=== PATIENT | female | born 1935 | race Caucasian/White ===

== ENCOUNTER 2019-06-29 02:37 | Inpatient (IN) | payer MEDICARE ==
[2019-06-29] MEDS ORDERED: SODIUM CHLORIDE 0.9% 1,000 ML IV STA (02:42)
[2019-06-29] MEDS ORDERED: HYDROCORTISONE SUCCINATE 100 MG/2 ML VIAL IV STA (02:42)
[2019-06-29] MEDS ORDERED: VANCOMYCIN IV PER PHARMACY 1 EACH MISC MISCELLANE PRN (02:43)
--- NOTE | 2019-06-29 02:44 | ED ---
Weakness HPI - General Stated complaint: hypotension Time Seen by Provider: 06/29/19 02:42 Source: RN notes reviewed, old records reviewed Mode of arrival: EMS Limitations: altered mental status - History of Present Illness Initial comments: This is an 83-year-old female for evaluation of weakness poor strain secondary to clinical condition significantly hypotensive and hypothermic on arrival, patient is made herself a DO NOT RESUSCITATE, no code. Unable with history history obtained from EMS and prior charting patient accepted in transfer from [facility] MD Complaint: generalized weakness, lack of energy -: unknown Location: generalized Severity: severe Severity scale (1-10): 10 Quality: constant Consistency: constant Improves with: none Worsens with: none Context: recent illness, history of similar Associated Symptoms: nausea/vomiting, shortness of breath - Related Data Home Medications Medication Instructions Recorded Confirmed Apixaban [Eliquis] 5 mg PO BID 06/29/19 06/29/19 Aspirin EC [Ecotrin Low Dose] 81 mg PO DAILY 06/29/19 06/29/19 Cetirizine HCl 10 mg PO DAILY 06/29/19 06/29/19 Cholecalciferol (Vitamin D3) 2,000 unit PO DAILY 06/29/19 06/29/19 [Vitamin D3] Estradiol 0.25 mg PO Q48H 06/29/19 06/29/19 Fish Oil 900mg 900 mg PO DAILY 06/29/19 06/29/19 Fluticasone Propionate [Flonase 1 spray EA NOSTRIL DAILY 06/29/19 06/29/19 Allergy Relief] Furosemide [Lasix] 20 mg PO DAILY 06/29/19 06/29/19 Glucosamine 750mg 750 mg PO DAILY 06/29/19 06/29/19 Insulin Aspart Protam & Aspart 40 units SQ QAM 06/29/19 06/29/19 [NovoLOG MIX 70-30 Flexpen] Insulin Aspart Protam & Aspart 44 units SQ HS 06/29/19 06/29/19 [NovoLOG MIX 70-30 Flexpen] Levobunolol HCl [Betagan 0.5%] 1 drop BOTH EYES DAILY 06/29/19 06/29/19 Metoprolol Succinate [Toprol XL] 25 mg PO DAILY 06/29/19 06/29/19 Spironolactone 25 mg PO DAILY 06/29/19 06/29/19 hydrOXYzine HCL 25 mg PO Q8H PRN 06/29/19 06/29/19 Allergies Allergy/AdvReac Type Severity Reaction Status Date / Time amoxicillin Allergy Itching Verified 06/29/19 11:30 rosuvastatin [From Crestor] Allergy muscle pain Verified 06/29/19 11:30 Review of Systems ROS Statement: Those systems with pertinent positive or pertinent negative responses have been documented in the HPI. ROS Other: All systems not noted in ROS Statement are negative. General Exam Limitations: altered mental status General appearance: alert, lethargic, in distress Head exam: Present: atraumatic, normocephalic, normal inspection Eye exam: Present: normal appearance, PERRL, EOMI. Absent: scleral icterus, conjunctival injection, periorbital swelling ENT exam: Present: normal exam, mucous membranes moist Neck exam: Present: normal inspection. Absent: tenderness, meningismus, lymphadenopathy Respiratory exam: Present: decreased breath sounds, prolonged expiratory. Absent: respiratory distress, wheezes, rales, rhonchi, stridor Cardiovascular Exam: Present: regular rate, normal rhythm, normal heart sounds. Absent: systolic murmur, diastolic murmur, rubs, gallop, clicks GI/Abdominal exam: Present: soft, normal bowel sounds. Absent: distended, tenderness, guarding, rebound, rigid Extremities exam: Present: normal inspection, full ROM, normal capillary refill. Absent: tenderness, pedal edema, joint swelling, calf tenderness Back exam: Present: normal inspection Neurological exam: Present: altered Psychiatric exam: Present: normal affect, normal mood Skin exam: Present: dry, intact, pallor. Absent: rash Course Vital Signs 06/29/19 06/29/19 06/29/19 02:46 03:04 03:23 Temperature 92.5 F L 92.6 F L 92.7 F L Pulse Rate 70 70 70 Respiratory 15 16 10 L Rate Blood Pressure 117/67 115/81 93/39 O2 Sat by Pulse 97 95 92 L Oximetry 06/29/19 06/29/19 06/29/19 03:45 03:53 04:09 Temperature 92.8 F L Pulse Rate 70 70 70 Respiratory 10 L 10 L 12 Rate Blood Pressure 88/61 85/57 110/62 O2 Sat by Pulse 95 95 98 Oximetry 06/29/19 04:19 Temperature 93.6 F L Pulse Rate 70 Respiratory 12 Rate Blood Pressure 118/67 O2 Sat by Pulse 98 Oximetry - Reevaluation(s) Reevaluation #1: Medical records reviewed Patient is a no code patient Patient attempting to warm with active measures EKG Findings - EKG Comments: EKG Findings:: EKG shows paced rhythm of 70, QRS 136, QTc 462 Medical Decision Making - Medical Decision Making 83 female DF for evaluation patient coming in for hypothermia likely cause of sepsis. Patient to be admitted for continued rewarming, she is in no code patient - Lab Data Result diagrams: 07/01/19 04:15 07/01/19 04:15 Lab Results 06/29/19 06/29/19 06/29/19 Range/Units 02:50 02:50 02:50 WBC 5.2 (3.8-10.6) k/uL RBC 4.68 (3.80-5.40) m/uL Hgb 14.4 (11.4-16.0) gm/dL Hct 47.2 H (34.0-46.0) % MCV 100.8 H (80.0-100.0) fL MCH 30.7 (25.0-35.0) pg MCHC 30.5 L (31.0-37.0) g/dL RDW 16.8 H (11.5-15.5) % Plt Count 103 L (150-450) k/uL Neutrophils % 73 % Lymphocytes % 17 % Monocytes % 5 % Eosinophils % 2 % Basophils % 0 % Neutrophils # 3.8 (1.3-7.7) k/uL Lymphocytes # 0.9 L (1.0-4.8) k/uL Monocytes # 0.3 (0-1.0) k/uL Eosinophils # 0.1 (0-0.7) k/uL Basophils # 0.0 (0-0.2) k/uL Manual Slide Review Performed Large Platelets Present Hypochromasia Moderate Anisocytosis Slight Macrocytosis Slight Sodium 140 (137-145) mmol/L Potassium 5.5 H (3.5-5.1) mmol/L Chloride 111 H (98-107) mmol/L Carbon Dioxide 21 L (22-30) mmol/L Anion Gap 8 mmol/L BUN 81 H (7-17) mg/dL Creatinine 2.26 H (0.52-1.04) mg/dL Est GFR (CKD-EPI)AfAm 23 (>60 ml/min/1.73 sqM) Est GFR (CKD-EPI)NonAf 20 (>60 ml/min/1.73 sqM) Glucose 61 L (74-99) mg/dL Plasma Lactic Acid Huseyin (0.7-2.0) mmol/L Calcium 9.3 (8.4-10.2) mg/dL Phosphorus 5.5 H (2.5-4.5) mg/dL Magnesium 3.0 H (1.6-2.3) mg/dL Total Bilirubin 0.9 (0.2-1.3) mg/dL AST 58 H (14-36) U/L ALT 31 (4-34) U/L Alkaline Phosphatase 157 H (38-126) U/L Creatine Kinase 114 (30-135) U/L CK-MB (CK-2) (0.0-2.4) ng/mL Troponin I (0.000-0.034) ng/mL Total Protein 6.0 L (6.3-8.2) g/dL Albumin 3.0 L (3.5-5.0) g/dL TSH 4.050 (0.465-4.680) mIU/L Total T4 (4.5 - 10.9) ug/dL Free T4 1.66 (0.78-2.19) ng/dL Free T3 pg/mL 2.8 (2.8-5.3) pg/ml Total T3 (60.0-180.0) ng/dL Urine Color Yellow Urine Appearance Cloudy H (Clear) Urine pH 5.5 (5.0-8.0) Ur Specific [place] 1.022 (1.001-1.035) Urine Protein 2+ H (Negative) Urine Glucose (UA) Negative (Negative) Urine Ketones Negative (Negative) Urine Blood Large H (Negative) Urine Nitrite Negative (Negative) Urine Bilirubin Negative (Negative) Urine Urobilinogen <2.0 (<2.0) mg/dL Ur Leukocyte Esterase Small H (Negative) Urine RBC >182 H (0-5) /hpf Urine WBC 21 H (0-5) /hpf Ur Squamous Epith Cells <1 (0-4) /hpf Amorphous Sediment Moderate H (None) /hpf Urine Bacteria Occasional H (None) /hpf Hyaline Casts 445 H (0-2) /lpf Urine Mucus Rare H (None) /hpf 06/29/19 06/29/19 06/29/19 Range/Units 02:50 02:50 02:50 WBC (3.8-10.6) k/uL RBC (3.80-5.40) m/uL Hgb (11.4-16.0) gm/dL Hct (34.0-46.0) % MCV (80.0-100.0) fL MCH (25.0-35.0) pg MCHC (31.0-37.0) g/dL RDW (11.5-15.5) % Plt Count (150-450) k/uL Neutrophils % % Lymphocytes % % Monocytes % % Eosinophils % % Basophils % % Neutrophils # (1.3-7.7) k/uL Lymphocytes # (1.0-4.8) k/uL Monocytes # (0-1.0) k/uL Eosinophils # (0-0.7) k/uL Basophils # (0-0.2) k/uL Manual Slide Review Large Platelets Hypochromasia Anisocytosis Macrocytosis Sodium (137-145) mmol/L Potassium (3.5-5.1) mmol/L Chloride (98-107) mmol/L Carbon Dioxide (22-30) mmol/L Anion Gap mmol/L BUN (7-17) mg/dL Creatinine (0.52-1.04) mg/dL Est GFR (CKD-EPI)AfAm (>60 ml/min/1.73 sqM) Est GFR (CKD-EPI)NonAf (>60 ml/min/1.73 sqM) Glucose (74-99) mg/dL Plasma Lactic Acid [place] 1.5 (0.7-2.0) mmol/L Calcium (8.4-10.2) mg/dL Phosphorus (2.5-4.5) mg/dL Magnesium (1.6-2.3) mg/dL Total Bilirubin (0.2-1.3) mg/dL AST (14-36) U/L ALT (4-34) U/L Alkaline Phosphatase (38-126) U/L Creatine Kinase (30-135) U/L CK-MB (CK-2) 16.8 H (0.0-2.4) ng/mL Troponin I 0.031 (0.000-0.034) ng/mL Total Protein (6.3-8.2) g/dL Albumin (3.5-5.0) g/dL TSH (0.465-4.680) mIU/L Total T4 5.2 (4.5 - 10.9) ug/dL Free T4 (0.78-2.19) ng/dL Free T3 pg/mL (2.8-5.3) pg/ml Total T3 (60.0-180.0) ng/dL Urine Color Urine Appearance (Clear) Urine pH (5.0-8.0) Ur Specific [place] (1.001-1.035) Urine Protein (Negative) Urine Glucose (UA) (Negative) Urine Ketones (Negative) Urine Blood (Negative) Urine Nitrite (Negative) Urine Bilirubin (Negative) Urine Urobilinogen (<2.0) mg/dL Ur Leukocyte Esterase (Negative) Urine RBC (0-5) /hpf Urine WBC (0-5) /hpf Ur Squamous Epith Cells (0-4) /hpf Amorphous Sediment (None) /hpf Urine Bacteria (None) /hpf Hyaline Casts (0-2) /lpf Urine Mucus (None) /hpf 06/29/19 Range/Units 02:50 WBC (3.8-10.6) k/uL RBC (3.80-5.40) m/uL Hgb (11.4-16.0) gm/dL Hct (34.0-46.0) % MCV (80.0-100.0) fL MCH (25.0-35.0) pg MCHC (31.0-37.0) g/dL RDW (11.5-15.5) % Plt Count (150-450) k/uL Neutrophils % % Lymphocytes % % Monocytes % % Eosinophils % % Basophils % % Neutrophils # (1.3-7.7) k/uL Lymphocytes # (1.0-4.8) k/uL Monocytes # (0-1.0) k/uL Eosinophils # (0-0.7) k/uL Basophils # (0-0.2) k/uL Manual Slide Review Large Platelets Hypochromasia Anisocytosis Macrocytosis Sodium (137-145) mmol/L Potassium (3.5-5.1) mmol/L Chloride (98-107) mmol/L Carbon Dioxide (22-30) mmol/L Anion Gap mmol/L BUN (7-17) mg/dL Creatinine (0.52-1.04) mg/dL Est GFR (CKD-EPI)AfAm (>60 ml/min/1.73 sqM) Est GFR (CKD-EPI)NonAf (>60 ml/min/1.73 sqM) Glucose (74-99) mg/dL Plasma Lactic Acid [place]in (0.7-2.0) mmol/L Calcium (8.4-10.2) mg/dL Phosphorus (2.5-4.5) mg/dL Magnesium (1.6-2.3) mg/dL Total Bilirubin (0.2-1.3) mg/dL AST (14-36) U/L ALT (4-34) U/L Alkaline Phosphatase (38-126) U/L Creatine Kinase (30-135) U/L CK-MB (CK-2) (0.0-2.4) ng/mL Troponin I (0.000-0.034) ng/mL Total Protein (6.3-8.2) g/dL Albumin (3.5-5.0) g/dL TSH (0.465-4.680) mIU/L Total T4 (4.5 - 10.9) ug/dL Free T4 (0.78-2.19) ng/dL Free T3 pg/mL (2.8-5.3) pg/ml Total T3 61.0 (60.0-180.0) ng/dL Urine Color Urine Appearance (Clear) Urine pH (5.0-8.0) Ur Specific [place] (1.001-1.035) Urine Protein (Negative) Urine Glucose (UA) (Negative) Urine Ketones (Negative) Urine Blood (Negative) Urine Nitrite (Negative) Urine Bilirubin (Negative) Urine Urobilinogen (<2.0) mg/dL Ur Leukocyte Esterase (Negative) Urine RBC (0-5) /hpf Urine WBC (0-5) /hpf Ur Squamous Epith Cells (0-4) /hpf Amorphous Sediment (None) /hpf Urine Bacteria (None) /hpf Hyaline Casts (0-2) /lpf Urine Mucus (None) /hpf Critical Care Time Critical Care Time: Yes Total Critical Care Time: 31 Disposition Clinical Impression: Sepsis, Hypothermia, Weakness Disposition: ADMITTED IP TO THIS HOSP Condition: Critical Is patient prescribed a controlled substance at d/c from ED?: No
[2019-06-29 03:11] LABS: Anisocytosis Slight; Basophils % (A) 0 %; Eosinophils # (A) 0.1 k/uL (0-0.7); Eosinophils % (A) 2 %; HCT 47.2 % (34.0-46.0); HGB 14.4 gm/dL (11.4-16.0); Hypochromasia Moderate; Lymphocytes # (A) 0.9 k/uL (1.0-4.8); Lymphocytes % (A) 17 %; MCH 30.7 pg (25.0-35.0); MCHC 30.5 g/dL (31.0-37.0); MCV 100.8 fL (80.0-100.0); Macrocytosis Slight; Mean Platelet Volume 12.1; Monocytes # (A) 0.3 k/uL (0-1.0); Monocytes % (A) 5 %; Neutrophils # (A) 3.8 k/uL (1.3-7.7); Neutrophils % (A) 73 %; Platelet Count 103 k/uL (150-450); RBC 4.68 m/uL (3.80-5.40); RDW 16.8 % (11.5-15.5); WBC 5.2 k/uL (3.8-10.6)
[2019-06-29] MEDS ORDERED: NALOXONE 0.4 MG/ML 1 ML VIAL IV PRN (03:11)
[2019-06-29] MEDS ORDERED: IPRATROPIUM-ALBUTEROL 3 ML NEB INHALATION PRN (03:11)
[2019-06-29 03:16] LABS: Amorphous Sediment,Urine Moderate /hpf; Appearance,Urine Cloudy (Clear); Bacteria,Urine Occasional /hpf; Bilirubin,Urine Negative (Negative); Blood,Urine Large (Negative); Color,Urine Yellow; Glucose,Urine (UA) Negative (Negative); Hyaline Casts,Urine 445 /lpf (0-2); Ketones,Urine Negative (Negative); Leukocyte Esterase,Urine Small (Negative); Mucus,Urine Rare /hpf; Nitrite,Urine Negative (Negative); PH, Urine 5.5 (5.0-8.0); Protein,Urine 2+ (Negative); RBC,Urine >182 /hpf (0-5); Specific Gravity,Urine 1.022 (1.001-1.035); Squamous Epithelial Cell,Urine <1 /hpf (0-4); Urobilinogen,Urine <2.0 mg/dL (<2.0); WBC,Urine 21 /hpf (0-5)
[2019-06-29 03:17] LABS: Calcium 9.3 mg/dL (8.4-10.2); Phosphorus 5.5 mg/dL (2.5-4.5); Potassium 5.5 mmol/L (3.5-5.1); Total Bilirubin 0.9 mg/dL (0.2-1.3)
[2019-06-29 03:23] LABS: Large Platelets Present
[2019-06-29] MEDS ORDERED: VANCOMYCIN 1,500 MG in SODIUM CHLORIDE 0.9% 250 ML IVPB ONE (03:30)
[2019-06-29] MEDS ORDERED: NOREPINEPHRINE 32 MG in SODIUM CHLORIDE 0.9% 218 ML IV ONE (03:30)
[2019-06-29 03:33] LABS: T4, Free (Free Thyroxine) 1.66 ng/dL (0.78-2.19)
[2019-06-29 03:34] LABS: Creatine Kinase MB 16.8 ng/mL (0.0-2.4); Troponin I 0.031 ng/mL (0.000-0.034)
[2019-06-29] MEDS: DOBUTamine DRIP 500 MG in DEXTROSE/WATER 1 250ML.BAG IV SCH ×2 (03:45→20:00)
[2019-06-29] MEDS ORDERED: DEXTROSE 5%-0.45% NACL 1,000 ML IV ONE (04:08)
[2019-06-29 04:17] LABS: Glucose,Whole Blood 54 mg/dL (75-99)
[2019-06-29] MEDS ORDERED: cefTRIAXone IN SWFI 1,000 MG/10 ML SYRINGE IVP STA (04:23)
[2019-06-29 04:46] LABS: Glucose,Whole Blood 69 mg/dL (75-99)
[2019-06-29 04:46] LABS: Glucose,Whole Blood 67 mg/dL (75-99)
[2019-06-29 05:08] LABS: Glucose,Whole Blood 74 mg/dL (75-99)
[2019-06-29] MEDS ORDERED: SODIUM BICARB 8.4% 50 ML SYR (1 MEQ/ML) IV STA (08:39)
--- NOTE | 2019-06-29 08:42 | P.NPCON ---
History of Present Illness - Reason for Consult acute renal failure - History of Present Illness Reason for consultation: Acute kidney injury on chronic kidney disease History of present illness: Patient is a 83-year-old female seen in renal consultation for acute kidney injury on chronic kidney disease. 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 Patient presented to [facility] with generalized weakness. She was noted to be hypotensive with systolic blood pressure in the 60s. She received 2.5 L of normal saline bolus and was subsequently transferred to this facility. She is currently on 10 mics of Levophed and 5 mics of dobutamine. Urine output the last 3 hours has been about 25 mL total. She is also receiving half-normal saline at 80 mL an hour. Creatinine today is 2.26. Blood pressures now the systolic 80s. Patient is somewhat confused. She is not a reliable historian. She was also noted to be hypoglycemic and her blood sugars have improved a little. I don't see her home medications listed and patient is not able to give reliable information at this time. Vital signs are stable. General: The patient appeared well nourished and normally developed. HEENT: Head exam is unremarkable. Neck is without jugular venous distension. LUNGS: Lungs are clear to auscultation and percussion. Breath sounds decreased. HEART: Rate and Rhythm are regular. ABDOMEN: Obese. Nontender. EXTREMITITES: 1+ edema. Chronic changes noted. Past Medical History Past Medical History: Heart Failure, Diabetes Mellitus History of Any Multi-Drug Resistant Organisms: Unobtainable Past Surgical History: Pacemaker Past Psychological History: Unable to Obtain Smoking Status: Unknown if ever smoked Past Alcohol Use History: Unable to Obtain Past Drug Use History: Unable to Obtain Medications and Allergies Home Medications Medication Instructions Recorded Confirmed Type Unable To Assess [Unable to Assess] 06/29/19 06/29/19 History Allergies Allergy/AdvReac Type Severity Reaction Status Date / Time No Known Allergies Allergy Verified 06/29/19 02:58 Physical Exam Vitals: Vital Signs Temp Pulse Resp BP Pulse Ox 06/29/19 08:00 97.4 F L 78 12 84/35 96 06/29/19 07:00 70 14 99/47 96 06/29/19 06:45 97.4 F L 70 16 111/61 97 06/29/19 06:30 70 14 107/48 95 06/29/19 06:15 69 15 95/50 96 06/29/19 06:00 93.8 F L 70 14 94/46 96 06/29/19 05:45 70 16 102/46 96 06/29/19 05:30 70 14 99/47 97 06/29/19 05:15 70 15 93/48 95 06/29/19 05:00 94.8 F L 70 16 111/51 96 06/29/19 04:35 69 12 99/57 98 06/29/19 04:19 93.6 F L 70 12 118/67 98 06/29/19 04:09 70 12 110/62 98 06/29/19 03:53 70 10 L 85/57 95 06/29/19 03:45 92.8 F L 70 10 L 88/61 95 06/29/19 03:23 92.7 F L 70 10 L 93/39 92 L 06/29/19 03:04 92.6 F L 70 16 115/81 95 06/29/19 02:46 92.5 F L 70 15 117/67 97 Intake and Output 06/28/19 06/29/19 06/29/19 22:59 06:59 14:59 Intake Total 263.848 159.224 Output Total 47 Balance 216.848 159.224 Intake: IV 249 83 Dextrose 5%-0.45% NaCl 1, 249 83 000 ml @ 83 mls/hr IV . Q12H3M ONE Rx#:[id number] Intake, IV Titration 14.848 76.224 Amount DOBUTamine DRIP 500 mg In 70.421 Dextrose/Water 1 250ml. bag @ 5 MCG/KG/MIN 15.649 mls/hr IV .[id number] Rx#:[id number] Norepinephrine 32 mg In 14.848 5.803 Sodium Chloride 0.9% 218 ml @ 0.05 MCG/KG/MIN 2. 445 mls/hr IV .Q24H ONE Rx#:[id number] Output: Urine 47 Other: Voiding Method Indwelling Catheter Weight 104.326 kg Results - Lab Results Most recent lab results Calcium 9.3 mg/dL (8.4-10.2) 06/29/19 02:50 Phosphorus 5.5 mg/dL (2.5-4.5) H 06/29/19 02:50 Magnesium 3.0 mg/dL (1.6-2.3) H 06/29/19 02:50 06/29/19 02:50 06/29/19 02:50 Assessment and Plan Plan: Assessment: 1. Acute kidney injury secondary to ATN secondary to hypotension. Creatinine 2.26 today. Oliguric. 2. Chronic kidney disease stage III secondary to nephrosclerosis with baseline creatinine near 1.6. 3. Mild hyperkalemia secondary to acute kidney injury and metabolic acidosis. 4. Metabolic acidosis secondary to acute kidney injury. 5. Diabetes mellitus. 6. Septic shock. Possibly UTI. COVID-19 test was negative at [facility]. Plan: Maintain half-normal saline. 2 A of sodium bicarb IV push now. Maintain IV steroids. Wean vasopressors. Repeat BMP this evening. If no improvement in his urine output in the next 4-6 hours, I will challenge her with Lasix 80 mg IV once. Continue to assess daily for need for renal replacement therapy. Follow-up cultures. Thank you for the consultation. I will continue to follow the patient with you during her hospital stay.
[2019-06-29 08:53] LABS: Glucose,Whole Blood 93 mg/dL (75-99)
--- NOTE | 2019-06-29 08:58 | XR ---
EXAMINATION TYPE: XR chest 1V portable DATE OF EXAM: 06/29/2019 COMPARISON: NONE HISTORY: Shortness of breath TECHNIQUE: Single frontal view of the chest is obtained. FINDINGS: Cardiac device seen and is a coarsened interstitium with biapical pleural thickening. No a reas of consolidation. Tiny effusions not excluded. Heart enlarged. Atherosclerotic change aorta. IMPRESSION: 1. Mild increased interstitial pattern correlate for interstitial mild venous congestion or pneumonit is.
[2019-06-29] MEDS ORDERED: ENOXAPARIN 40 MG/0.4 ML SYRINGE SQ SCH (09:00)
--- NOTE | 2019-06-29 11:05 | CONS ---
CONSULTATION PULMONARY/CRITICAL CARE CONSULTATION: DATE OF CONSULTATION: June 29, 2019 REASON FOR CONSULTATION: Mental status changes, low blood pressure, and hypothermia. The patient presents to the emergency room. She apparently was seen there by Dr. Garcia. Her symptoms include generalized weakness, lack of energy, and she had a change in her mental status. She was also found to be hypotensive and hypothermic. Her initial temperature was right around 90 degrees. She had a thorough workup in the emergency room and Dr. Garcia thought that maybe this related to underlying sepsis. Anyway, the patient was given fluids I believe 3 L. The patient also received some Levophed. In addition, the patient had a central line placed. Currently, she is resting comfortably in bed. She is in the ICU. She is in room 263. She is lying flat. She is not demonstrating any respiratory distress. She is getting O2 at 3 L. Saturations are 97%. She is on dobutamine at 5 mcg/kg per minute, and norepinephrine at 1 mcg/minute. She has a right internal jugular triple-lumen catheter. She is on vancomycin and Rocephin. Her IV is D5 0.45 at 83 mL an hour. She apparently was transferred from [facility]. She went there initially. She apparently was thought to have either urosepsis and/or cellulitis of the lower extremities. MEDICATIONS: Her home medications are unknown. Her current medications are reviewed. ALLERGIES: Allergies are denied. MEDICAL HISTORY: Her medical history is unknown because we do not know what medication she was on. SURGICAL AND SOCIAL HISTORY: Surgical and social history is also unknown. She is not able to give any additional history. FAMILY HISTORY: Unknown. OCCUPATIONAL HISTORY: Unknown. She typically gets her care down at [facility] with Dr. Jeffrey. Hence, we have no records on her here at this hospital. No records apparently have yet been sent from the other hospital. Her current medications include ceftriaxone; Dobutamine, which we are attempting to wean off; Lovenox, hydrocortisone, DuoNeb, Narcan, norepinephrine, and vancomycin. REVIEW OF SYSTEMS: Cannot be obtained. PHYSICAL EXAMINATION: VITAL SIGNS: Current vital signs include temperature 97.4, heart rate 70, respiratory rate 12, blood pressure 104/45, mean 64, and 3 L saturation 96% to 97%. GENERAL: Very lethargic and sleepy. She does verbalize but does not really give much of a history. HEENT: Examination is grossly unremarkable. NECK: Supple. Full range of motion. No adenopathy or thyromegaly. Neck veins are flat. CARDIOVASCULAR: Examination reveals regular rhythm and rate. Heart rate 70. S1, S2 normal. LUNGS: Reveal mostly clear breath sounds. No wheezes or rhonchi. ABDOMEN: Soft. Bowel sounds are not noted. EXTREMITIES: Are intact. Minimal to no edema. SKIN: Without rash. NEUROLOGIC: Examination is brief but nonfocal. She does move all 4 extremities. She does respond, but she is very sleepy and lethargic. A chest x-ray is done here. The chest x-ray is essentially normal. There might be some very mild interstitial prominence. LABS: Labs are reviewed. White count 5.2, hemoglobin 14.4, hematocrit 47.2, platelet count 103,000. Sodium 140, potassium 5.5, chloride 111, CO2 of 21. Anion gap is 8. BUN and creatinine were 81 and 2.26. The phosphorus is 5.5, magnesium 3, total protein 6, albumin 3. TSH 4.050. I do not see a cortisol level. Urine looks like it might be infected. The urine is yellow and cloudy. There is 2+ protein. Blood is large positive. There is leukocyte esterase is small positive. There is greater than 182 RBCs, 21 WBCs and occasional urine bacteria. CURRENT MEDICATIONS: Current medications have already been mentioned. Microbiology is currently pending. ASSESSMENT: 1. Mental status changes, along with hypothermia and hypotension, may relate to underlying sepsis. Likely sources are either the urinary tract and/or the lower extremity cellulitis. 2. Hypothermia, which may relate to underlying sepsis. 3. Hypotension, also, which may relate to underlying sepsis. 4. Rule out acute kidney injury secondary to acute tubular necrosis secondary to sepsis. PLAN: I will go ahead and get a random cortisol on the patient. The TSH is normal. I have asked the nurses to wean the dobutamine off. Initially, they will go to 2.5 mcg/kg per minute and then off. In addition, because dobutamine is a vasodilator, we may be able to wean off the norepinephrine. She has a central line already. She is on good antibiotics. Additional recommendations and suggestions are forthcoming. She did receive 3 L of fluid in the emergency room. She has been warmed. MMODL / IJN: [id number] /
[2019-06-29] MEDS: HYDROCORTISONE SUCCINATE 100 MG/2 ML VIAL IV SCH ×2 (12:09→20:55)
[2019-06-29] MEDS ORDERED: FUROSEMIDE 10 MG/ML 4 ML VIAL IV STA (15:03)
--- NOTE | 2019-06-29 17:19 | P.HPIM ---
History of Present Illness H&P Date: 06/29/19 Chief Complaint: Low blood pressure History of presenting complaint: This is a 83-year-old female patient of Dr. Ralph Jeffrey. Patient has a wound care nurse that comes on at home. For that the patient was not looking well. [facility]ided [facility]. Blood pressure was the systolic 60s. Patient was hypothermic and also decreasing urine output. Particular distress Hospital and initially getting a nice U patient is given about 3 L of fluid. Oriented is also given bicarbonate. Patient's been on levo fed drip and dobutamine drip. Patient also was hypoglycemic. Patient has a bear hugger. Lethargic not really able to give much of her history but arousable. Seen by tar heel. Dr. Lopez. Admitting review of system could not be done as patient lethargic Past medical history: Not able to obtain appears patient is a diabetic, possibly CHF and also on anticoagulation. Social history: Patient does live alone. Does have a wound care nurse that comes out. Family history: Unable to obtain patient lethargic Physical examination: VITAL SIGNS: 92.5, 70, 15, 93/39, 92% on 3 L-upon presentation GENERAL: BMI 42.1, laying in bed, lethargic with a bear hugger. EYES: Pupils equal. Conjunctiva normal. HEENT: External appearance of nose and ears normal, oral cavity dry. NECK: JVD unable to assess; masses not palpable. HEART: First and second heart sounds are normal; no edema. LUNGS: Respiratory rate normal; decreased breath sounds. ABDOMEN: Soft, nontender, liver spleen not palpable, no masses palpable. PSYCH: Lethargic but arousablel. NEUROLOGICAL: Cranial nerves grossly intact; no facial asymmetry, power and sensation grossly intact DERMATOLOGICAL: Evidence of possible chronic cellulitis and lower extremity. LYMPHATICS: No lymph nodes palpable in the axilla and neck INVESTIGATIONS, reviewed in the clinical context: White count 5.2 hemoglobin 14.4 platelets 103 potassium 5.5 bun 81 creatinine 2.26 Glucose 61 TSH 4.0 UA positive for WBC leukoesterase EKG tracing personally reviewed by me-ventricle paced rhythm Chest x-ray film personally reviewed by me-portable, borderline cardiomegaly, lung victor clear Assessment: -Hypotensive shock, possibly fluid depletion, could be also septic shock in the setting of hypokalemia -Severe hypo-thermia possibly from UTI and electrolyte abnormalities -Acute metabolic encephalopathy from above -Diabetes mellitus type 2 chronically on insulin, uncontrolled with hypoglycemia -Chronically on eliquis -Possibly acute UTI from cystitis with sepsis shock Plan: Patient in the ICU. [employer] Dr. Lopez. Patient is on IV ceftriaxone. Also drips include IV dobutamine and IV norepinephrine. Patient did receive vancomycin. In the ER. In view of the renal failure will hold of the same. Level should remain-some time. Accu-Cheks were closely being followed. Patient is on a D5W 0.456 drip. Follow electrolytes closely. Past Medical History Past Medical History: Heart Failure, Diabetes Mellitus History of Any Multi-Drug Resistant Organisms: Unobtainable Past Surgical History: Pacemaker Past Psychological History: Unable to Obtain Smoking Status: Unknown if ever smoked Past Alcohol Use History: Unable to Obtain Past Drug Use History: Unable to Obtain Medications and Allergies Home Medications Medication Instructions Recorded Confirmed Type Apixaban [Eliquis] 5 mg PO BID 06/29/19 06/29/19 History Aspirin EC [Ecotrin Low Dose] 81 mg PO DAILY 06/29/19 06/29/19 History Cetirizine HCl 10 mg PO DAILY 06/29/19 06/29/19 History Cholecalciferol (Vitamin D3) 2,000 unit PO DAILY 06/29/19 06/29/19 History [Vitamin D3] Estradiol 0.25 mg PO Q48H 06/29/19 06/29/19 History Fish Oil 900mg 900 mg PO DAILY 06/29/19 06/29/19 History Fluticasone Propionate [Flonase 1 spray EA NOSTRIL DAILY 06/29/19 06/29/19 History Allergy Relief] Furosemide [Lasix] 20 mg PO DAILY 06/29/19 06/29/19 History Glucosamine 750mg 750 mg PO DAILY 06/29/19 06/29/19 History Insulin Aspart Protam & Aspart 40 units SQ QAM 06/29/19 06/29/19 History [NovoLOG MIX 70-30 Flexpen] Insulin Aspart Protam & Aspart 44 units SQ HS 06/29/19 06/29/19 History [NovoLOG MIX 70-30 Flexpen] Levobunolol HCl [Betagan 0.5%] 1 drop BOTH EYES DAILY 06/29/19 06/29/19 History Metoprolol Succinate [Toprol XL] 25 mg PO DAILY 06/29/19 06/29/19 History Spironolactone 25 mg PO DAILY 06/29/19 06/29/19 History hydrOXYzine HCL 25 mg PO Q8H PRN 06/29/19 06/29/19 History Allergies Allergy/AdvReac Type Severity Reaction Status Date / Time amoxicillin Allergy Itching Verified 06/29/19 11:30 rosuvastatin [From Crestor] Allergy muscle pain Verified 06/29/19 11:30 Physical Exam Vitals: Vital Signs Temp Pulse Resp BP Pulse Ox 06/29/19 09:00 70 12 103/91 96 06/29/19 08:00 97.4 F L 78 12 84/35 96 06/29/19 07:00 70 14 99/47 96 06/29/19 06:45 97.4 F L 70 16 111/61 97 06/29/19 06:30 70 14 107/48 95 06/29/19 06:15 69 15 95/50 96 06/29/19 06:00 93.8 F L 70 14 94/46 96 06/29/19 05:45 70 16 102/46 96 06/29/19 05:30 70 14 99/47 97 06/29/19 05:15 70 15 93/48 95 06/29/19 05:00 94.8 F L 70 16 111/51 96 06/29/19 04:35 69 12 99/57 98 06/29/19 04:19 93.6 F L 70 12 118/67 98 06/29/19 04:09 70 12 110/62 98 06/29/19 03:53 70 10 L 85/57 95 06/29/19 03:45 92.8 F L 70 10 L 88/61 95 06/29/19 03:23 92.7 F L 70 10 L 93/39 92 L 06/29/19 03:04 92.6 F L 70 16 115/81 95 06/29/19 02:46 92.5 F L 70 15 117/67 97 Intake and Output 06/28/19 06/29/19 06/29/19 22:59 06:59 14:59 Intake Total 263.848 242.224 Output Total 47 5 Balance 216.848 237.224 Intake: IV 249 166 Dextrose 5%-0.45% NaCl 1, 249 166 000 ml @ 83 mls/hr IV . Q12H3M [facility] Rx#:[id number] Intake, IV Titration 14.848 76.224 Amount DOBUTamine DRIP 500 mg In 70.421 Dextrose/Water 1 250ml. bag @ 5 MCG/KG/MIN 15.649 mls/hr IV .[id number] [facility] Rx#:[id number] Norepinephrine 32 mg In 14.848 5.803 Sodium Chloride 0.9% 218 ml @ 0.05 MCG/KG/MIN 2. 445 mls/hr IV .Q24H [facility] Rx#:[id number] Output: Urine 47 5 Other: Voiding Method Indwelling Catheter Weight 104.326 kg Results CBC & Chem 7: 06/29/19 02:50 06/29/19 02:50 Labs: Abnormal Lab Results - Last 24 Hours (Table) 06/29/19 06/29/19 06/29/19 Range/Units 02:50 02:50 02:50 Hct 47.2 H (34.0-46.0) % MCV 100.8 H (80.0-100.0) fL MCHC 30.5 L (31.0-37.0) g/dL RDW 16.8 H (11.5-15.5) % Plt Count 103 L (150-450) k/uL Lymphocytes # 0.9 L (1.0-4.8) k/uL Potassium 5.5 H (3.5-5.1) mmol/L Chloride 111 H (98-107) mmol/L Carbon Dioxide 21 L (22-30) mmol/L BUN 81 H (7-17) mg/dL Creatinine 2.26 H (0.52-1.04) mg/dL Glucose 61 L (74-99) mg/dL POC Glucose (mg/dL) (75-99) mg/dL Phosphorus 5.5 H (2.5-4.5) mg/dL Magnesium 3.0 H (1.6-2.3) mg/dL AST 58 H (14-36) U/L Alkaline Phosphatase 157 H (38-126) U/L CK-MB (CK-2) (0.0-2.4) ng/mL Total Protein 6.0 L (6.3-8.2) g/dL Albumin 3.0 L (3.5-5.0) g/dL Urine Appearance Cloudy H (Clear) Urine Protein 2+ H (Negative) Urine Blood Large H (Negative) Ur Leukocyte Esterase Small H (Negative) Urine RBC >182 H (0-5) /hpf Urine WBC 21 H (0-5) /hpf Amorphous Sediment Moderate H (None) /hpf Urine Bacteria Occasional H (None) /hpf Hyaline Casts 445 H (0-2) /lpf Urine Mucus Rare H (None) /hpf 06/29/19 06/29/19 06/29/19 Range/Units 02:50 04:06 04:35 Hct (34.0-46.0) % MCV (80.0-100.0) fL MCHC (31.0-37.0) g/dL RDW (11.5-15.5) % Plt Count (150-450) k/uL Lymphocytes # (1.0-4.8) k/uL Potassium (3.5-5.1) mmol/L Chloride (98-107) mmol/L Carbon Dioxide (22-30) mmol/L BUN (7-17) mg/dL Creatinine (0.52-1.04) mg/dL Glucose (74-99) mg/dL POC Glucose (mg/dL) 54 L 67 L (75-99) mg/dL Phosphorus (2.5-4.5) mg/dL Magnesium (1.6-2.3) mg/dL AST (14-36) U/L Alkaline Phosphatase (38-126) U/L CK-MB (CK-2) 16.8 H (0.0-2.4) ng/mL Total Protein (6.3-8.2) g/dL Albumin (3.5-5.0) g/dL Urine Appearance (Clear) Urine Protein (Negative) Urine Blood (Negative) Ur Leukocyte Esterase (Negative) Urine RBC (0-5) /hpf Urine WBC (0-5) /hpf Amorphous Sediment (None) /hpf Urine Bacteria (None) /hpf Hyaline Casts (0-2) /lpf Urine Mucus (None) /hpf 06/29/19 06/29/19 Range/Units 04:44 05:06 Hct (34.0-46.0) % MCV (80.0-100.0) fL MCHC (31.0-37.0) g/dL RDW (11.5-15.5) % Plt Count (150-450) k/uL Lymphocytes # (1.0-4.8) k/uL Potassium (3.5-5.1) mmol/L Chloride (98-107) mmol/L Carbon Dioxide (22-30) mmol/L BUN (7-17) mg/dL Creatinine (0.52-1.04) mg/dL Glucose (74-99) mg/dL POC Glucose (mg/dL) 69 L 74 L (75-99) mg/dL Phosphorus (2.5-4.5) mg/dL Magnesium (1.6-2.3) mg/dL AST (14-36) U/L Alkaline Phosphatase (38-126) U/L CK-MB (CK-2) (0.0-2.4) ng/mL Total Protein (6.3-8.2) g/dL Albumin (3.5-5.0) g/dL Urine Appearance (Clear) Urine Protein (Negative) Urine Blood (Negative) Ur Leukocyte Esterase (Negative) Urine RBC (0-5) /hpf Urine WBC (0-5) /hpf Amorphous Sediment (None) /hpf Urine Bacteria (None) /hpf Hyaline Casts (0-2) /lpf Urine Mucus (None) /hpf Microbiology - Last 24 Hours (Table) 06/29/19 02:50 Urine Culture - Preliminary Urine,Clean Catch
[2019-06-29 17:34] LABS: Calcium 8.6 mg/dL (8.4-10.2); Potassium 5.5 mmol/L (3.5-5.1)
[2019-06-29 17:46] LABS: Glucose,Whole Blood 143 mg/dL (75-99)
[2019-06-29] MEDS: TIMOLOL 0.5% OPHTH DROPS 5 ML BTL BOTH EYES SCH (18:46)
[2019-06-29 18:51] LABS: ABG Base Excess -5.8 mmol/L; ABG HCO3 20 mmol/L (21-25); ABG PCO2 38 mmHg (35-45); ABG PH 7.33 (7.35-7.45); ABG PO2 121 mmHg (83-108); ABG TCO2 21 mmol/L (19-24); Allen Test Performed? Yes
[2019-06-29 18:55] LABS: ABG Oxygen Saturation 98.7 % (94-97)
[2019-06-29 20:53] LABS: Glucose,Whole Blood 156 mg/dL (75-99)
[2019-06-29] MEDS: INSULIN ASPART (NovoLOG) 100 UNIT/ML VIAL SQ SCH (20:55)
[2019-06-30 01:39] LABS: Glucose,Whole Blood 189 mg/dL (75-99)
[2019-06-30] MEDS: INSULIN ASPART (NovoLOG) 100 UNIT/ML VIAL SQ SCH ×5 (01:41→20:31)
[2019-06-30] MEDS: HYDROCORTISONE SUCCINATE 100 MG/2 ML VIAL IV SCH ×3 (04:43→20:31)
[2019-06-30] MEDS: NOREPINEPHRINE 32 MG in SODIUM CHLORIDE 0.9% 218 ML IV SCH (04:44)
[2019-06-30 05:01] LABS: Anisocytosis Slight; HCT 47.7 % (34.0-46.0); HGB 14.5 gm/dL (11.4-16.0); Hypochromasia Marked; MCH 30.7 pg (25.0-35.0); MCHC 30.5 g/dL (31.0-37.0); MCV 100.6 fL (80.0-100.0); Macrocytosis Slight; Mean Platelet Volume 11.8; Platelet Count 120 k/uL (150-450); RBC 4.74 m/uL (3.80-5.40); RDW 16.5 % (11.5-15.5); WBC 6.5 k/uL (3.8-10.6)
[2019-06-30 05:02] LABS: Albumin 3.1 g/dL (3.5-5.0); Calcium 9.3 mg/dL (8.4-10.2); Magnesium 3.2 mg/dL (1.6-2.3); Phosphorus 6.7 mg/dL (2.5-4.5); Potassium 5.7 mmol/L (3.5-5.1); Total Bilirubin 0.7 mg/dL (0.2-1.3); Total Protein 6.2 g/dL (6.3-8.2)
[2019-06-30 05:48] LABS: Large Platelets Present; Lymphocytes # (M) 0.52 k/uL (1.0-4.8); Neutrophils # (M) 5.79 k/uL (1.3-7.7); Neutrophils % (M) 89 %; Nucleated Red Blood Cells 0 /100 WBC (0-0); Total Cells Counted 100
[2019-06-30 05:50] LABS: Poikilocytosis (M) Present
[2019-06-30 07:14] LABS: Glucose,Whole Blood 170 mg/dL (75-99)
--- NOTE | 2019-06-30 07:51 | XR ---
EXAMINATION TYPE: XR chest 1V DATE OF EXAM: 06/30/2019 COMPARISON: 06/29/2019 INDICATION: Short of breath TECHNIQUE: Single frontal view of the chest is obtained. FINDINGS: The heart size is mildly prominent. The pulmonary vasculature is normal. Pacemaker overlies left chest. Right central venous catheter is present with tip in the superior vena cava region. Bibasilar infiltrates or small pleural effusions have developed. Findings are worsening over the interval IMPRESSION: 1. Bibasilar opacifications. Correlate for atelectasis and small pleural effusions. Findings are wors ening.
[2019-06-30] MEDS ORDERED: VANCOMYCIN 1,750 MG in SODIUM CHLORIDE 0.9% 500 ML 500 ML IVPB ONE (08:00)
[2019-06-30] MEDS: TIMOLOL 0.5% OPHTH DROPS 5 ML BTL BOTH EYES SCH (09:00)
[2019-06-30] MEDS: ENOXAPARIN 30 MG/0.3 ML SYRINGE SQ SCH (09:00)
[2019-06-30] MEDS: ESTRADIOL 0.5 MG TAB PO SCH (11:15)
[2019-06-30] MEDS ORDERED: INSULIN REGULAR 100 UNIT/ML VIAL IV ONE (11:18)
[2019-06-30] MEDS ORDERED: FUROSEMIDE 10 MG/ML 10 ML VIAL IV STA (11:18)
[2019-06-30] MEDS ORDERED: DEXTROSE 50% SYRINGE 50 ML IVP STA (11:18)
[2019-06-30] MEDS ORDERED: SODIUM BICARB 8.4% 50 ML SYR (1 MEQ/ML) IV STA (11:18)
--- NOTE | 2019-06-30 11:22 | P.PN ---
Subjective Patient is seen in follow-up for acute kidney injury. Renal function worsening. Urine output 15-20 mL an hour. Currently on 18 mics of Levophed. Remains acidotic. Potassium on the higher side. Not a reliable historian. Vital signs are stable. General: The patient appeared well nourished and normally developed. HEENT: Head exam is unremarkable. Neck is without jugular venous distension. LUNGS: Lungs are clear to auscultation and percussion. Breath sounds decreased. HEART: Rate and Rhythm are regular. ABDOMEN: Non-tender. No distension. EXTREMITITES: 1+ edema. Objective - Vital Signs Vital signs: Vital Signs Temp 98.7 F 06/30/19 08:00 Pulse 70 06/30/19 11:00 Resp 12 06/30/19 11:00 BP 130/57 06/30/19 11:00 Pulse Ox 97 06/30/19 11:00 Intake & Output 06/29/19 06/30/19 06/30/19 18:59 06:59 18:59 Intake Total 1085.916 665.564 100 Output Total 100 225 92 Balance 985.916 440.564 8 Weight 104.326 kg 111.4 kg Intake: IV 996 598 100 Dextrose 5%-0.45% NaCl 1, 996 598 100 000 ml @ 83 mls/hr IV . Q12H3M [facility] Rx#:[id number] Intake, IV Titration 89.916 67.564 Amount DOBUTamine DRIP 500 mg In 84.113 Dextrose/Water 1 250ml. bag @ 5 MCG/KG/MIN 15.649 mls/hr IV .[id number] [facility] Rx#:[id number] Norepinephrine 32 mg In 5.803 62.429 Sodium Chloride 0.9% 218 ml @ 0.05 MCG/KG/MIN 2. 445 mls/hr IV .Q24H [facility] Rx#:[id number] Norepinephrine 32 mg In 5.135 Sodium Chloride 0.9% 218 ml @ 0.05 MCG/KG/MIN 2. 445 mls/hr IV .Q24H [facility] Rx#:[id number] Output: Urine 100 225 92 Other: Voiding Method Indwelling Catheter Indwelling Catheter Indwelling Catheter - Labs CBC & Chem 7: 06/30/19 04:26 06/30/19 04:26 Labs: Abnormal Lab Results - Last 24 Hours (Table) 06/29/19 06/29/19 06/29/19 Range/Units 17:05 17:43 18:50 Hct (34.0-46.0) % MCV (80.0-100.0) fL MCHC (31.0-37.0) g/dL RDW (11.5-15.5) % Plt Count (150-450) k/uL Lymphocytes # (Manual) (1.0-4.8) k/uL ABG pH 7.33 L (7.35-7.45) ABG pO2 121 H (83-108) mmHg ABG HCO3 20 L (21-25) mmol/L ABG O2 Saturation 98.7 H (94-97) % Sodium 136 L (137-145) mmol/L Potassium 5.5 H (3.5-5.1) mmol/L Chloride (98-107) mmol/L Carbon Dioxide 20 L (22-30) mmol/L BUN 80 H (7-17) mg/dL Creatinine 2.36 H (0.52-1.04) mg/dL Glucose 344 H (74-99) mg/dL POC Glucose (mg/dL) 143 H (75-99) mg/dL Phosphorus (2.5-4.5) mg/dL Magnesium (1.6-2.3) mg/dL AST (14-36) U/L Alkaline Phosphatase (38-126) U/L Total Protein (6.3-8.2) g/dL Albumin (3.5-5.0) g/dL 06/29/19 06/30/19 06/30/19 Range/Units 20:52 01:37 04:26 Hct 47.7 H (34.0-46.0) % MCV 100.6 H (80.0-100.0) fL MCHC 30.5 L (31.0-37.0) g/dL RDW 16.5 H (11.5-15.5) % Plt Count 120 L (150-450) k/uL Lymphocytes # (Manual) 0.52 L (1.0-4.8) k/uL ABG pH (7.35-7.45) ABG pO2 (83-108) mmHg ABG HCO3 (21-25) mmol/L ABG O2 Saturation (94-97) % Sodium (137-145) mmol/L Potassium (3.5-5.1) mmol/L Chloride (98-107) mmol/L Carbon Dioxide (22-30) mmol/L BUN (7-17) mg/dL Creatinine (0.52-1.04) mg/dL Glucose (74-99) mg/dL POC Glucose (mg/dL) 156 H 189 H (75-99) mg/dL Phosphorus (2.5-4.5) mg/dL Magnesium (1.6-2.3) mg/dL AST (14-36) U/L Alkaline Phosphatase (38-126) U/L Total Protein (6.3-8.2) g/dL Albumin (3.5-5.0) g/dL 06/30/19 06/30/19 Range/Units 04:26 07:13 Hct (34.0-46.0) % MCV (80.0-100.0) fL MCHC (31.0-37.0) g/dL RDW (11.5-15.5) % Plt Count (150-450) k/uL Lymphocytes # (Manual) (1.0-4.8) k/uL ABG pH (7.35-7.45) ABG pO2 (83-108) mmHg ABG HCO3 (21-25) mmol/L ABG O2 Saturation (94-97) % Sodium (137-145) mmol/L Potassium 5.7 H (3.5-5.1) mmol/L Chloride 109 H (98-107) mmol/L Carbon Dioxide 17 L (22-30) mmol/L BUN 89 H (7-17) mg/dL Creatinine 2.66 H (0.52-1.04) mg/dL Glucose 215 H (74-99) mg/dL POC Glucose (mg/dL) 170 H (75-99) mg/dL Phosphorus 6.7 H (2.5-4.5) mg/dL Magnesium 3.2 H (1.6-2.3) mg/dL AST 50 H (14-36) U/L Alkaline Phosphatase 142 H (38-126) U/L Total Protein 6.2 L (6.3-8.2) g/dL Albumin 3.1 L (3.5-5.0) g/dL Microbiology - Last 24 Hours (Table) 06/29/19 04:00 Blood Culture - Preliminary Blood No Growth after 24 hours 06/29/19 02:50 Urine Culture - Preliminary Urine,Clean Catch Assessment and Plan Plan: Assessment: 1. Acute kidney injury secondary to ATN secondary to hypotension/sepsis. Creatinine 2.66 today. Oliguric. 2. Chronic kidney disease stage III secondary to nephrosclerosis with baseline creatinine near 1.6. 3. Mild hyperkalemia secondary to acute kidney injury and metabolic acidosis. 4. Metabolic acidosis secondary to acute kidney injury. 5. Diabetes mellitus. 6. Septic shock. Possibly UTI. COVID-19 test was negative at [facility]. 7. Fluid overload. Plan: Hep-Lock IV fluids. 2 A of sodium bicarb IV push now. 10 units of IV regular insulin with an amp of D50. Lasix 80 mg IV once today. Wean vasopressors. Repeat BMP this evening. Continue to assess daily for need for renal replacement therapy. Follow-up cultures.
[2019-06-30 11:24] LABS: Glucose,Whole Blood 179 mg/dL (75-99)
--- NOTE | 2019-06-30 14:02 | PN ---
PROGRESS NOTE PULMONARY/CRITICAL CARE PROGRESS NOTE: DATE OF SERVICE: 06/30/2019 This is a patient who is 83 years of age and we saw yesterday in consultation. She came in with mental status changes, hypotension and hypothermia. We thought that she might have some underlying sepsis. In addition, the patient was thought to have acute kidney injury secondary to ATN. We really did not know much about the patient when we first saw her. We have gotten some additional information. It appears that she likely has diabetes, and she is on blood thinner. In addition, she takes vitamin D3 and antihistamines. She is also on metoprolol and Aldactone. I suspect she has some underlying CHF. Anyway, overnight, the patient was made a NO CODE by her family. Currently, she has a paced rhythm with a rate of 69. She is on O2 at 3 L by nasal cannula and norepinephrine at 18 mcg/minute. She is getting D5 of 0.45 at 20 mL an hour. Chest x-ray shows some bibasilar infiltrates. She is getting both vancomycin and Rocephin. She apparently had a blood culture that was positive for gram-positive cocci. Her mentation is a bit improved. She also got some sodium bicarbonate IV push yesterday from the conveyor attendant. She was on dobutamine, but that has been weaned off. She does have a central line. Currently, she is still very lethargic and somnolent. In addition, the nurse said that she also became hypothermic again early this morning. She is not being warmed again. She was initially seen at [facility] and transferred up to [facility]. Current vital signs are reviewed. Temperature is 97.5, heart rate 70, respiratory rate 12, blood pressure 126/56 mean 79, and 3 L saturation 96%. Appears in no acute distress. HEENT: Examination is grossly unremarkable. Nasal O2 noted. NECK: Supple, full range of motion. There is a central line noted. No adenopathy or thyromegaly. Neck veins are flat. CARDIOVASCULAR: Examination reveals regular rhythm and rate. Heart rate about 70 beats per minute. It is a paced rhythm. S1, S2 normal. No murmur. LUNGS: Reveal a few scattered mild rhonchi. No wheezes or crackles. ABDOMEN: Obese, bowel sounds are not noted. EXTREMITIES: Intact. Slight edema noted. SKIN: Without rash. NEUROLOGIC: Examination is difficult to assess. She does verbalize. She does move all 4 extremities, but she is still quite lethargic and somnolent. LABS: Reviewed. White count 6.5, hemoglobin 14.5, hematocrit 47.7, platelet count is 120,000, sodium 138, potassium 5.7, chloride 109, CO2 is 17, anion gap is 12. BUN and creatinine were 89 and 2.66. The patient's magnesium is 3.2, phosphorus 6.7, albumin 3.1. The chest x-ray from today shows bibasilar opacities with atelectasis and bilateral effusions. Chest x-ray is a bit worse today than it was yesterday. Microbiology is thus far negative. CURRENT MEDICATIONS: Reviewed. The patient is currently on Rocephin, Lovenox, Estrace, Solu-Cortef, insulin, DuoNeb, Narcan, norepinephrine, and eye drops. ASSESSMENT: 1. Mental status changes along with hypothermia and hypotension, which may relate to sepsis, otherwise cultures so far are negative. 2. Hypothermia, improved. 3. Hypertension, still significant, requiring fluid resuscitation and norepinephrine. 4. Rule out adrenal insufficiency. 5. Acute kidney injury, secondary to acute tubular necrosis. 6. Diabetes mellitus. 7. Probable congestive heart failure. 8. Vitamin D deficiency. 9. Environmental allergies. PLAN: Currently, the patient will get additional antibiotics. The patient may have an underlying infection. We will give her one more day of vancomycin. Additional recommendations and suggestions are forthcoming. Overall prognosis remains very poor. She was made in NO CODE last night. She is 83 years of age. Will continue to try to wean the norepinephrine off. We were able to wean the dobutamine off yesterday. She is being treated for renal insufficiency. Additional recommendations and suggestions are forthcoming. Again, prognosis is very poor. MMODL / IJN: [id number] /
[2019-06-30 16:55] LABS: Glucose,Whole Blood 208 mg/dL (75-99)
[2019-06-30 18:29] LABS: Calcium 9.5 mg/dL (8.4-10.2); Potassium 5.4 mmol/L (3.5-5.1)
--- NOTE | 2019-06-30 19:33 | P.PN ---
Progress Note - Text Progress Note Date: 06/30/19 Chief Complaint: Low blood pressure History of presenting complaint: This is a 83-year-old female patient of Dr. Ralph Jeffrey. Patient has a wound care nurse that comes on at home. For that the patient was not looking well. Decided [facility]. Blood pressure was the systolic 60s. Patient was hypothermic and also decreasing urine output. Particular distress Hospital and initially getting a nice U patient is given about 3 L of fluid. Oriented is also given bicarbonate. Patient's been on levo fed drip and dobutamine drip. Patient also was hypoglycemic. Patient has a bear hugger. Lethargic not really able to give much of her history but arousable. Seen by hand ornament maker. Dr. Lopez. Admitted with-hypotensive shock from fluid depletion, severe hypothermia, UTI acute metabolic encephalopathy, hypoglycemia. Admitted to ICU. Started on IV ceftriaxone, IV dobutamine and IV levo fed. Adxdh-NOQ-dr 3 L of nasal cannula. Somewhat delirious. Was on Levothroid was increased. Urine output is a bit better. Earlier given some Lasix and bicarbonate were nephrology. Telemetry shows medical paced rhythm. Admitting review of system could not be done-patient delirious Active Medications Albuterol/Ipratropium (Duoneb 0.5 Mg-3 Mg/3 Ml Soln) 3 ml INHALATION RT-Q4H PRN PRN Reason: Shortness Of Breath Or Wheezing Enoxaparin Sodium (Lovenox) 30 mg SQ DAILY [facility] Last Admin: 06/30/19 09:00 Dose: 30 mg Documented by: Estradiol (Estrace) 0.25 mg PO Q48H [facility] Last Admin: 06/30/19 11:15 Dose: Not Given Documented by: Hydrocortisone Sodium Succinate (Solu-Cortef) 100 mg IV Q8H [facility] Last Admin: 06/30/19 11:45 Dose: 100 mg Documented by: Ceftriaxone Sodium 1 gm/ (Sodium Chloride) 50 mls @ 100 mls/hr IVPB Q24HR [facility] Last Admin: 06/30/19 09:00 Dose: 100 mls/hr Documented by: Norepinephrine Bitartrate 32 (mg/ Sodium Chloride) 250 mls @ 2.445 mls/hr IV .Q24H [facility]; Protocol Last Titration: 06/30/19 05:29 Dose: 0.16 mcg/kg/min, 7.824 mls/hr Documented by: Insulin Aspart (Novolog) 0 unit SQ [id number] [facility]; Protocol Last Admin: 06/30/19 17:39 Dose: 3 unit Documented by: Naloxone HCl (Narcan) 0.2 mg IV Q2M PRN PRN Reason: Opioid Reversal Nystatin (Mycostatin Powder) 1 applic TOPICAL TID [facility] Timolol Maleate (Timoptic) 1 drops BOTH EYES DAILY [facility] Last Admin: 06/30/19 09:00 Dose: 1 drops Documented by: Physical examination: VITAL SIGNS: Recent 0.5, 70, 90, 126/56, and 6% on 3 L GENERAL: laying in bed, delirious EYES: Pupils equal. Conjunctiva normal. HEENT: External appearance of nose and ears normal, oral cavity dry. NECK: JVD unable to assess; masses not palpable. HEART: First and second heart sounds are normal; no edema. LUNGS: Respiratory rate normal; decreased breath sounds. ABDOMEN: Soft, nontender, liver spleen not palpable, no masses palpable. PSYCH: Delirious May answer occasional question INVESTIGATIONS, reviewed in the clinical context: White count 6.5 hemoglobin 40.5 potassium 5.7 bun 89 creatinine 2.66 Previous testing White count 5.2 hemoglobin 14.4 platelets 103 potassium 5.5 bun 81 creatinine 2.26 Glucose 61 TSH 4.0 UA positive for WBC leukoesterase EKG tracing personally reviewed by me-ventricle paced rhythm Chest x-ray film personally reviewed by me-portable, borderline cardiomegaly, lung victor clear Assessment: -Hypotensive shock, possibly fluid depletion, could be also septic shock in the setting of hypothermia-slow to respond still on pressor support -Severe hypo-thermia possibly from UTI and electrolyte abnormalities, POA -Acute metabolic encephalopathy with delirium from above-slow to respond -Diabetes mellitus type 2 chronically on insulin, uncontrolled with hypoglycemia-improved -Chronically on eliquis -Possibly acute UTI from cystitis with sepsis shock Plan: Patient received earlier Lasix and bicarbonate. Started on levo fed. Patient may benefit from IV fluids appears to be fluid depleted. We'll discuss with nephrology. Follow with nephrology and hand ornament maker. Prognosis guarded.
[2019-06-30 20:29] LABS: Glucose,Whole Blood 218 mg/dL (75-99)
[2019-06-30] MEDS: NYSTATIN 100,000 UNIT/GM POWD 15 GM TOPICAL SCH ×2 (20:31→20:35)
[2019-07-01 01:52] LABS: Glucose,Whole Blood 203 mg/dL (75-99)
[2019-07-01] MEDS: INSULIN ASPART (NovoLOG) 100 UNIT/ML VIAL SQ SCH ×5 (01:53→20:49)
[2019-07-01] MEDS: HYDROCORTISONE SUCCINATE 100 MG/2 ML VIAL IV SCH ×3 (04:03→20:49)
[2019-07-01 04:34] LABS: Anisocytosis Slight; Basophils % (A) 0 %; Eosinophils % (A) 0 %; HCT 47.1 % (34.0-46.0); HGB 14.4 gm/dL (11.4-16.0); Hypochromasia Moderate; Lymphocytes # (A) 0.7 k/uL (1.0-4.8); Lymphocytes % (A) 9 %; MCH 30.6 pg (25.0-35.0); MCHC 30.7 g/dL (31.0-37.0); MCV 99.6 fL (80.0-100.0); Macrocytosis Slight; Mean Platelet Volume 11.3; Monocytes # (A) 0.4 k/uL (0-1.0); Monocytes % (A) 5 %; Neutrophils # (A) 7.2 k/uL (1.3-7.7); Neutrophils % (A) 85 %; Platelet Count 109 k/uL (150-450); RBC 4.73 m/uL (3.80-5.40); RDW 16.6 % (11.5-15.5); WBC 8.5 k/uL (3.8-10.6)
[2019-07-01 04:42] LABS: Calcium 9.5 mg/dL (8.4-10.2); Magnesium 3.1 mg/dL (1.6-2.3); Phosphorus 5.7 mg/dL (2.5-4.5); Potassium 4.9 mmol/L (3.5-5.1)
[2019-07-01 04:47] LABS: Vancomycin,Random 22.2 ug/mL
[2019-07-01] MEDS: NOREPINEPHRINE 32 MG in SODIUM CHLORIDE 0.9% 218 ML IV SCH (06:38)
[2019-07-01 07:21] LABS: Glucose,Whole Blood 200 mg/dL (75-99)
[2019-07-01] MEDS: ENOXAPARIN 30 MG/0.3 ML SYRINGE SQ SCH (10:23)
[2019-07-01] MEDS: NYSTATIN 100,000 UNIT/GM POWD 15 GM TOPICAL SCH ×3 (10:24→20:49)
[2019-07-01] MEDS: TIMOLOL 0.5% OPHTH DROPS 5 ML BTL BOTH EYES SCH (10:24)
[2019-07-01] MEDS ORDERED: FUROSEMIDE 10 MG/ML 10 ML VIAL IV STA (11:35)
--- NOTE | 2019-07-01 11:39 | P.PN ---
Subjective Patient is seen in follow-up for acute kidney injury. Renal function stable. Urine output 30-60 mL an hour. she received 80 mg of IV Lasix in June 29. Currently on 7 mics of Levophed. Potassium normal today. Not a reliable historian. Remains confused. Vital signs are stable. Currently on Levophed. General: The patient appeared well nourished and normally developed. HEENT: Head exam is unremarkable. Neck is without jugular venous distension. LUNGS: Lungs are clear to auscultation and percussion. Breath sounds decreased. HEART: Rate and Rhythm are regular. ABDOMEN: Non-tender. No distension. EXTREMITITES: 1+ edema. Objective - Vital Signs Vital signs: Vital Signs Temp 98.0 F 07/01/19 11:00 Pulse 70 07/01/19 11:00 Resp 12 07/01/19 11:00 BP 116/54 07/01/19 11:00 Pulse Ox 95 07/01/19 11:00 Intake & Output 06/30/19 07/01/19 07/01/19 18:59 06:59 18:59 Intake Total 180 335.795 100 Output Total 902 650 229 Balance -722 -314.205 -129 Weight 108.9 kg Intake: IV 180 220 100 0.9 220 100 Dextrose 5%-0.45% NaCl 1, 180 000 ml @ 83 mls/hr IV . Q12H3M [facility] Rx#:[id number] Intake, IV Titration 115.795 Amount Norepinephrine 32 mg In 115.795 Sodium Chloride 0.9% 218 ml @ 0.05 MCG/KG/MIN 2. 445 mls/hr IV .Q24H [facility] Rx#:[id number] Oral 0 Output: Urine 902 650 229 Other: Voiding Method Indwelling Catheter Indwelling Catheter Indwelling Catheter - Labs CBC & Chem 7: 07/01/19 04:15 07/01/19 04:15 Labs: Abnormal Lab Results - Last 24 Hours (Table) 06/30/19 06/30/19 06/30/19 Range/Units 16:54 18:02 20:27 Hct (34.0-46.0) % MCHC (31.0-37.0) g/dL RDW (11.5-15.5) % Plt Count (150-450) k/uL Lymphocytes # (1.0-4.8) k/uL Potassium 5.4 H (3.5-5.1) mmol/L Chloride (98-107) mmol/L Carbon Dioxide 21 L (22-30) mmol/L BUN 93 H (7-17) mg/dL Creatinine 2.71 H (0.52-1.04) mg/dL Glucose 253 H (74-99) mg/dL POC Glucose (mg/dL) 208 H 218 H (75-99) mg/dL Phosphorus (2.5-4.5) mg/dL Magnesium (1.6-2.3) mg/dL 07/01/19 07/01/19 07/01/19 Range/Units 01:49 04:15 04:15 Hct 47.1 H (34.0-46.0) % MCHC 30.7 L (31.0-37.0) g/dL RDW 16.6 H (11.5-15.5) % Plt Count 109 L (150-450) k/uL Lymphocytes # 0.7 L (1.0-4.8) k/uL Potassium (3.5-5.1) mmol/L Chloride 108 H (98-107) mmol/L Carbon Dioxide (22-30) mmol/L BUN 97 H (7-17) mg/dL Creatinine 2.70 H (0.52-1.04) mg/dL Glucose 234 H (74-99) mg/dL POC Glucose (mg/dL) 203 H (75-99) mg/dL Phosphorus 5.7 H (2.5-4.5) mg/dL Magnesium 3.1 H (1.6-2.3) mg/dL 07/01/19 Range/Units 07:19 Hct (34.0-46.0) % MCHC (31.0-37.0) g/dL RDW (11.5-15.5) % Plt Count (150-450) k/uL Lymphocytes # (1.0-4.8) k/uL Potassium (3.5-5.1) mmol/L Chloride (98-107) mmol/L Carbon Dioxide (22-30) mmol/L BUN (7-17) mg/dL Creatinine (0.52-1.04) mg/dL Glucose (74-99) mg/dL POC Glucose (mg/dL) 200 H (75-99) mg/dL Phosphorus (2.5-4.5) mg/dL Magnesium (1.6-2.3) mg/dL Microbiology - Last 24 Hours (Table) 06/29/19 04:00 Blood Culture - Preliminary Blood No Growth after 48 hours 06/29/19 02:50 Urine Culture - Final Urine,Clean Catch Assessment and Plan Plan: Assessment: 1. Acute kidney injury secondary to ATN secondary to hypotension/sepsis. Renal function stable. Creatinine 2.7 today. 2. Chronic kidney disease stage III secondary to nephrosclerosis with baseline creatinine near 1.6. 3. Mild hyperkalemia secondary to acute kidney injury and metabolic acidosis. Improved. 4. Metabolic acidosis secondary to acute kidney injury. 5. Diabetes mellitus. 6. Septic shock. Possibly UTI. COVID-19 test was negative at [facility]. 7. Fluid overload. Plan: Wean vasopressors. Follow-up cultures. Repeat Lasix 80 mg IV once today. Overall the patient is not a good candidate for long-term renal replacement therapy. Continue to assess daily.
--- NOTE | 2019-07-01 12:17 | PN ---
PROGRESS NOTE PULMONARY/CRITICAL CARE PROGRESS NOTE: DATE OF SERVICE: 07/01/2019 Critical care time greater than 30 minutes. An 83-year-old female who we saw a couple days ago in consultation. She is a bit of an enigma. She came in with mental status changes, hypotension, and hypothermia. We thought she might have underlying sepsis. In addition, she did have acute kidney injury, secondary to ATN. Initially, when we saw the patient we did not know much about her. We did really know what medication she was on at home. It appears that she likely has diabetes. She is on a blood thinner. May have some underlying atrial fibrillation. She also takes vitamin D3 and antihistamines. She also may suffer from underlying CHF. Anyway, apparently after the first night here, her family made her a DNR. One of our nurse practitioners apparently used to live across the street from her, but does not know much about her health history. Currently, she is resting comfortably. She is still very lethargic and somnolent. She did develop hypothermia again and required the heating blanket. She is getting saline at 20 mL an hour. She is also getting norepinephrine at 65 mcg/minute and an O2 at 3 L by nasal cannula. She does respond but she has a very flat affect and tends to doze off after you talk to her for a bit. She initially was on dobutamine, but that has been weaned off. She was initially seen at [facility] and transferred to [facility]. Current vital signs are reviewed. Temperature is now 98 degrees, heart rate 70, respiratory rate 12, blood pressure 116/54 mean 74, central venous pressure is 22, and saturations are 95% on 3 L. Appears in no acute distress. HEENT: Examination is grossly unremarkable. Nasal O2 noted. NECK: Supple. Full range of motion. No adenopathy or thyromegaly. CARDIOVASCULAR: Examination reveals regular rhythm and rate. Heart rate mid 70s. S1, S2 normal. Heart sounds are distant. No murmur. LUNGS: Reveal mostly clear breath sounds. No wheezes or crackles. A few scattered mild rhonchi. ABDOMEN: Obese. Bowel sounds are heard. EXTREMITIES: Intact. Minimal edema. SKIN: Without rash. NEUROLOGIC: Examination is difficult to assess. She does arouse. Has a very flat affect. She does move all 4 extremities. LAB DATA: Reviewed. White count 8.5, hemoglobin 14.4, hematocrit 47.1, platelet count 109,000. Sodium 140, potassium 4.9, chloride 108, CO2 is 22, anion gap is 10, BUN and creatinine were stable but 97 and 2.70 compared to 93 and 2.71 yesterday. Sugar is 200. Magnesium 3.1. Microbiology include blood and urine are currently negative. No x-rays to report. The chest x-ray from the shows soft bilateral opacifications and small effusions. CURRENT MEDICATIONS: Reviewed. She is currently on Rocephin, Lovenox, Estrace, hydrocortisone at 100 mg q.8 hours, insulin, Narcan, norepinephrine, and nystatin topical. She is also on eyedrops. ASSESSMENT: 1. Mental status changes along with hypothermia and hypotension, which may relate to underlying sepsis. Cultures thus far are negative. She remains on antibiotics empirically. 2. Hypothermia, improved. 3. Hypotension, still requiring fluid resuscitation and norepinephrine, but improved. 4. Possible underlying adrenal insufficiency. 5. Acute kidney injury secondary to acute tubular necrosis. 6. Diabetes mellitus. 7. Obesity. 8. Probable congestive heart failure. 9. Vitamin D deficiency. 10.History of environmental allergies. PLAN: The patient will continue to be monitored. She remains on norepinephrine. Her CVP suggests that she is adequately volume resuscitated. She is getting O2 at 3 L. Her saturations are excellent. She remains on antibiotics empirically. Culture data is negative. Will continue to follow. Prognosis is guarded. She is a DNR. Critical care time is greater than 30 minutes. MMODL / IJN: [id number] /
[2019-07-01 12:20] LABS: Glucose,Whole Blood 186 mg/dL (75-99)
--- NOTE | 2019-07-01 15:04 | P.PN ---
Progress Note - Text Progress Note Date: 07/01/19 Chief Complaint: Low blood pressure History of presenting complaint: This is a 83-year-old female patient of Dr. Ralph Jeffrey. Patient has a wound care nurse that comes on at home. For that the patient was not looking well. Decided to take the [facility]. Blood pressure was the systolic 60s. Patient was hypothermic and also decreasing urine output. Particular distress Hospital and initially getting a nice U patient is given about 3 L of fluid. Oriented is also given bicarbonate. Patient's been on levo fed drip and dobutamine drip. Patient also was hypoglycemic. Patient has a bear hugger. Lethargic not really able to give much of her history but arousable. Seen by bean sorter. Dr. Lopez. Admitted with-hypotensive shock from fluid depletion, severe hypothermia, UTI acute metabolic encephalopathy, hypoglycemia. Admitted to ICU. Started on IV ceftriaxone, IV dobutamine and IV levo fed. On IV hydrocortisone. [id number][id number] delirious. Occasionally does speak or words. Does open eyes occasionally. On levo fed drip. Telemetry shows V paced. Make some urine. Hypothermia corrected Admitting review of system could not be done-patient delirious Active Medications Enoxaparin Sodium (Lovenox) 30 mg SQ DAILY [facility] Last Admin: 07/01/19 10:23 Dose: 30 mg Documented by: Estradiol (Estrace) 0.25 mg PO Q48H [facility] Last Admin: 06/30/19 11:15 Dose: Not Given Documented by: Hydrocortisone Sodium Succinate (Solu-Cortef) 100 mg IV Q8H [facility] Last Admin: 07/01/19 11:50 Dose: 100 mg Documented by: Ceftriaxone Sodium 1 gm/ (Sodium Chloride) 50 mls @ 100 mls/hr IVPB Q24HR [facility] Last Admin: 07/01/19 10:22 Dose: 100 mls/hr Documented by: Norepinephrine Bitartrate 32 (mg/ Sodium Chloride) 250 mls @ 2.445 mls/hr IV .Q24H [facility]; Protocol Last Titration: 07/01/19 12:55 Dose: 0.02 mcg/kg/min, 0.978 mls/hr Documented by: Insulin Aspart (Novolog) 0 unit SQ [id number] [facility]; Protocol Last Admin: 07/01/19 12:37 Dose: 2 unit Documented by: Insulin Detemir (Levemir) 12 unit SQ HS [facility] Naloxone HCl (Narcan) 0.2 mg IV Q2M PRN PRN Reason: Opioid Reversal Nystatin (Mycostatin Powder) 1 applic TOPICAL TID [facility] Last Admin: 07/01/19 10:24 Dose: 1 applic Documented by: Silver Sulfadiazine (Silvadene Cream) 1 applic TOPICAL DAILY [facility] Last Admin: 07/01/19 14:09 Dose: 1 applic Documented by: Timolol Maleate (Timoptic) 1 drops BOTH EYES DAILY [facility] Last Admin: 07/01/19 10:24 Dose: 1 drops Documented by: Physical examination: VITAL SIGNS: 98, 70, 20, 116/54, 95% GENERAL: laying in bed, delirious EYES: Pupils equal. Conjunctiva normal. HEENT: External appearance of nose and ears normal, oral cavity dry. NECK: JVD unable to assess; masses not palpable. HEART: First and second heart sounds are normal; no edema. LUNGS: Respiratory rate normal; decreased breath sounds. ABDOMEN: Soft, nontender, liver spleen not palpable, no masses palpable. PSYCH: Delirious May answer occasional question INVESTIGATIONS, reviewed in the clinical context: White count 8.5 hemoglobin 14.4 platelets 19 potassium 4.9 bun 97 creatinine 2.70 Previous testing White count 5.2 hemoglobin 14.4 platelets 103 potassium 5.5 bun 81 creatinine 2.26 Glucose 61 TSH 4.0 UA positive for WBC leukoesterase EKG tracing personally reviewed by me-ventricle paced rhythm Chest x-ray film personally reviewed by me-portable, borderline cardiomegaly, lung victor clear Assessment: -Hypotensive shock, possibly fluid depletion, could be also septic shock in the setting of hypothermia-slow to respond still on pressor support-not improving -Severe hypo-thermia possibly from UTI and electrolyte abnormalities, POA- corrected -Acute metabolic encephalopathy with delirium from not improving -Diabetes mellitus type 2 chronically on insulin, uncontrolled with hypoglycemia-improved -Chronically on eliquis -Possibly acute UTI from cystitis with sepsis shock Plan: Patient received a dose of Lasix earlier by nephrology. Patient still remained somewhat delirious. No focal signs. We'll get a computed tomography scan of the brain and also get a neurology opinion. We'll also order an EEG.
--- NOTE | 2019-07-01 15:50 | CT ---
EXAMINATION TYPE: CT brain wo con DATE OF EXAM: 07/01/2019 COMPARISON: None HISTORY: mental status changes. CT DLP: 2459.4 mGycm Automated exposure control for dose reduction was used. Head CT performed using departmental protocol . FINDINGS: Cortical atrophy is present. Periventricular white matter shows patchy low attenuation, abnormal low attenuation extending in the centrum semiovale towards the convexity on the right. There is no hemorr raul or hydrocephalus. Calvarium is intact. There is some motion on the exam. Punctate calcification in the left frontal lobe on axial image 41 series 301 questionable clinical significance, similar lily cification noted on axial image 37 could be related to remote infection. There are cerebral vascular calcifications present. IMPRESSION: FINDINGS CONSISTENT WITH CHRONIC SMALL VESSEL DISEASE, CORRELATE FOR POSSIBLE SUBACUTE ISCHEMIA, MRI MAY BE OF BENEFIT. Additional findings above.
--- NOTE | 2019-07-01 18:05 | P.CNNES ---
History of Present Illness Consult date: 07/01/19 Requesting physician: Rodríguez Smith Reason for Consult: Mental status changes History of Present Illness: Patient is a 83-year-old female, who came to the hospital 2 days ago on 06/29/2019 for altered mental status, with hypotension and hypothermia. Patient was also diagnosed with acute kidney injury secondary to ATN secondary to hypotension. Patient has to be placed on vasopressors. Also diagnosed with metabolic acidosis. Patient had septic shock, possible UTI. COVID testing negative. Neurology was consulted for altered mental status. Patient underwent CT head revealed findings consistent with chronic small vessel disease, correlate for possible subacute ischemia, MRI may be of benefit. I reviewed computed tomography scan of the head, and appears subacute ischemic CVA. EKG showed ventricular paced rhythm. Chest x-ray with bibasilar opacifications. Correlate for atelectasis and small pleural effusions. Findings are worsening. Patient's blood test shows normal WBC, lymphocytes are decreased. Hemoglobin 14.4, electrolytes are normal, BUN 97, creatinine 2.70. AST is 50, ALT 30, CK 114, TSH is 4.050, UA showed cloudy urine with large amount of blood, small amount of leukocyte Estrace and negative nitrite. Blood cultures and urine cultures so far negative. Her renal functions has got worse, was BUN 81 on arrival now 97. Likewise creatinine was 2.26 on arrival now 2.70. Review of Systems ROS unobtainable: due to mental status Past Medical History Past Medical History: Heart Failure, Diabetes Mellitus History of Any Multi-Drug Resistant Organisms: Unobtainable Past Surgical History: Pacemaker Type of Cardiac Device: Permanent Pacemaker Device Placement Date:: 09/2018 Past Psychological History: Unable to Obtain Smoking Status: Never smoker Past Alcohol Use History: Unable to Obtain Past Drug Use History: Unable to Obtain Medications and Allergies Home Medications Medication Instructions Recorded Confirmed Type Apixaban [Eliquis] 5 mg PO BID 06/29/19 06/29/19 History Aspirin EC [Ecotrin Low Dose] 81 mg PO DAILY 06/29/19 06/29/19 History Cetirizine HCl 10 mg PO DAILY 06/29/19 06/29/19 History Cholecalciferol (Vitamin D3) 2,000 unit PO DAILY 06/29/19 06/29/19 History [Vitamin D3] Estradiol 0.25 mg PO Q48H 06/29/19 06/29/19 History Fish Oil 900mg 900 mg PO DAILY 06/29/19 06/29/19 History Fluticasone Propionate [Flonase 1 spray EA NOSTRIL DAILY 06/29/19 06/29/19 History Allergy Relief] Furosemide [Lasix] 20 mg PO DAILY 06/29/19 06/29/19 History Glucosamine 750mg 750 mg PO DAILY 06/29/19 06/29/19 History Insulin Aspart Protam & Aspart 40 units SQ QAM 06/29/19 06/29/19 History [NovoLOG MIX 70-30 Flexpen] Insulin Aspart Protam & Aspart 44 units SQ HS 06/29/19 06/29/19 History [NovoLOG MIX 70-30 Flexpen] Levobunolol HCl [Betagan 0.5%] 1 drop BOTH EYES DAILY 06/29/19 06/29/19 History Metoprolol Succinate [Toprol XL] 25 mg PO DAILY 06/29/19 06/29/19 History Spironolactone 25 mg PO DAILY 06/29/19 06/29/19 History hydrOXYzine HCL 25 mg PO Q8H PRN 06/29/19 06/29/19 History Allergies Allergy/AdvReac Type Severity Reaction Status Date / Time amoxicillin Allergy Itching Verified 06/29/19 11:30 rosuvastatin [From Crestor] Allergy muscle pain Verified 06/29/19 11:30 Physical Examination - Vital Signs Vital Signs: Vital Signs Temp Pulse Resp BP Pulse Ox 07/01/19 15:00 70 15 102/56 94 L 07/01/19 14:00 70 13 111/63 95 07/01/19 13:00 69 9 L 110/49 96 07/01/19 12:00 68 25 H 112/57 97 07/01/19 11:00 98.0 F 70 12 116/54 95 07/01/19 10:00 98.0 F 70 23 110/55 96 07/01/19 09:00 70 11 L 109/44 95 07/01/19 08:00 70 20 107/46 95 07/01/19 07:00 68 12 105/44 96 07/01/19 06:00 68 12 97/48 95 07/01/19 05:00 70 16 100/48 96 07/01/19 04:00 97.6 F 70 16 111/58 97 07/01/19 03:00 70 14 108/48 96 07/01/19 02:00 70 12 90/50 96 07/01/19 01:00 70 16 94/39 97 07/01/19 00:00 94.8 F L 70 16 99/51 96 06/30/19 23:00 70 15 102/48 96 06/30/19 22:25 70 17 105/52 95 06/30/19 22:00 70 16 106/50 96 06/30/19 21:00 70 11 L 100/52 95 06/30/19 20:00 94.3 F L 69 16 137/60 96 06/30/19 19:00 70 10 L 136/63 97 06/30/19 18:00 70 10 L 145/70 97 06/30/19 17:00 70 12 97 06/30/19 16:25 12 06/30/19 16:00 97.4 F L 70 18 132/61 97 Intake and Output 07/01/19 07/01/19 07/01/19 06:59 14:59 22:59 Intake Total 160 207.694 20 Output Total 440 569 125 Balance -280 -361.306 -105 Intake: IV 160 160 20 0.9 160 160 20 Intake, IV Titration 47.694 Amount Norepinephrine 32 mg In 47.694 Sodium Chloride 0.9% 218 ml @ 0.05 MCG/KG/MIN 2. 445 mls/hr IV .Q24H [facility] Rx#:[id number] Oral 0 Output: Urine 440 569 125 Other: Voiding Method Indwelling Catheter Indwelling Catheter Weight 108.9 kg On examination patient is an elderly female, who appears obtunded, encephalopathic, keeps her eyes closed. She moans a little day. She does not respond to calling her name. She does not answer. Pupils are round and reacting to light. Visual victor could not be tested. Face appears symmetric. Tone is equal in the arms and legs. She did not cooperate with motor testing. Reflexes are symmetric. She has cellulitis. Patient moans on checking Babinski. Results - Laboratory Findings CBC and BMP: 07/01/19 04:15 07/01/19 04:15 Abnormal Lab Findings: Abnormal Labs 06/29/19 06/29/19 06/29/19 02:50 02:50 02:50 Hct 47.2 H MCV 100.8 H MCHC 30.5 L RDW 16.8 H Plt Count 103 L Lymphocytes # 0.9 L Lymphocytes # (Manual) ABG pH ABG pO2 ABG HCO3 ABG O2 Saturation Sodium Potassium 5.5 H Chloride 111 H Carbon Dioxide 21 L BUN 81 H Creatinine 2.26 H Glucose 61 L POC Glucose (mg/dL) Phosphorus 5.5 H Magnesium 3.0 H AST 58 H Alkaline Phosphatase 157 H CK-MB (CK-2) Total Protein 6.0 L Albumin 3.0 L Urine Appearance Cloudy H Urine Protein 2+ H Urine Blood Large H Ur Leukocyte Esterase Small H Urine RBC >182 H Urine WBC 21 H Amorphous Sediment Moderate H Urine Bacteria Occasional H Hyaline Casts 445 H Urine Mucus Rare H 06/29/19 06/29/19 06/29/19 02:50 04:06 04:35 Hct MCV MCHC RDW Plt Count Lymphocytes # Lymphocytes # (Manual) ABG pH ABG pO2 ABG HCO3 ABG O2 Saturation Sodium Potassium Chloride Carbon Dioxide BUN Creatinine Glucose POC Glucose (mg/dL) 54 L 67 L Phosphorus Magnesium AST Alkaline Phosphatase CK-MB (CK-2) 16.8 H Total Protein Albumin Urine Appearance Urine Protein Urine Blood Ur Leukocyte Esterase Urine RBC Urine WBC Amorphous Sediment Urine Bacteria Hyaline Casts Urine Mucus 06/29/19 06/29/19 06/29/19 04:44 05:06 17:05 Hct MCV MCHC RDW Plt Count Lymphocytes # Lymphocytes # (Manual) ABG pH ABG pO2 ABG HCO3 ABG O2 Saturation Sodium 136 L Potassium 5.5 H Chloride Carbon Dioxide 20 L BUN 80 H Creatinine 2.36 H Glucose 344 H POC Glucose (mg/dL) 69 L 74 L Phosphorus Magnesium AST Alkaline Phosphatase CK-MB (CK-2) Total Protein Albumin Urine Appearance Urine Protein Urine Blood Ur Leukocyte Esterase Urine RBC Urine WBC Amorphous Sediment Urine Bacteria Hyaline Casts Urine Mucus 06/29/19 06/29/19 06/29/19 17:43 18:50 20:52 Hct MCV MCHC RDW Plt Count Lymphocytes # Lymphocytes # (Manual) ABG pH 7.33 L ABG pO2 121 H ABG HCO3 20 L ABG O2 Saturation 98.7 H Sodium Potassium Chloride Carbon Dioxide BUN Creatinine Glucose POC Glucose (mg/dL) 143 H 156 H Phosphorus Magnesium AST Alkaline Phosphatase CK-MB (CK-2) Total Protein Albumin Urine Appearance Urine Protein Urine Blood Ur Leukocyte Esterase Urine RBC Urine WBC Amorphous Sediment Urine Bacteria Hyaline Casts Urine Mucus 06/30/19 06/30/19 06/30/19 01:37 04:26 04:26 Hct 47.7 H MCV 100.6 H MCHC 30.5 L RDW 16.5 H Plt Count 120 L Lymphocytes # Lymphocytes # (Manual) 0.52 L ABG pH ABG pO2 ABG HCO3 ABG O2 Saturation Sodium Potassium 5.7 H Chloride 109 H Carbon Dioxide 17 L BUN 89 H Creatinine 2.66 H Glucose 215 H POC Glucose (mg/dL) 189 H Phosphorus 6.7 H Magnesium 3.2 H AST 50 H Alkaline Phosphatase 142 H CK-MB (CK-2) Total Protein 6.2 L Albumin 3.1 L Urine Appearance Urine Protein Urine Blood Ur Leukocyte Esterase Urine RBC Urine WBC Amorphous Sediment Urine Bacteria Hyaline Casts Urine Mucus 06/30/19 06/30/19 06/30/19 07:13 11:22 16:54 Hct MCV MCHC RDW Plt Count Lymphocytes # Lymphocytes # (Manual) ABG pH ABG pO2 ABG HCO3 ABG O2 Saturation Sodium Potassium Chloride Carbon Dioxide BUN Creatinine Glucose POC Glucose (mg/dL) 170 H 179 H 208 H Phosphorus Magnesium AST Alkaline Phosphatase CK-MB (CK-2) Total Protein Albumin Urine Appearance Urine Protein Urine Blood Ur Leukocyte Esterase Urine RBC Urine WBC Amorphous Sediment Urine Bacteria Hyaline Casts Urine Mucus 06/30/19 06/30/19 07/01/19 18:02 20:27 01:49 Hct MCV MCHC RDW Plt Count Lymphocytes # Lymphocytes # (Manual) ABG pH ABG pO2 ABG HCO3 ABG O2 Saturation Sodium Potassium 5.4 H Chloride Carbon Dioxide 21 L BUN 93 H Creatinine 2.71 H Glucose 253 H POC Glucose (mg/dL) 218 H 203 H Phosphorus Magnesium AST Alkaline Phosphatase CK-MB (CK-2) Total Protein Albumin Urine Appearance Urine Protein Urine Blood Ur Leukocyte Esterase Urine RBC Urine WBC Amorphous Sediment Urine Bacteria Hyaline Casts Urine Mucus 07/01/19 07/01/19 07/01/19 04:15 04:15 07:19 Hct 47.1 H MCV MCHC 30.7 L RDW 16.6 H Plt Count 109 L Lymphocytes # 0.7 L Lymphocytes # (Manual) ABG pH ABG pO2 ABG HCO3 ABG O2 Saturation Sodium Potassium Chloride 108 H Carbon Dioxide BUN 97 H Creatinine 2.70 H Glucose 234 H POC Glucose (mg/dL) 200 H Phosphorus 5.7 H Magnesium 3.1 H AST Alkaline Phosphatase CK-MB (CK-2) Total Protein Albumin Urine Appearance Urine Protein Urine Blood Ur Leukocyte Esterase Urine RBC Urine WBC Amorphous Sediment Urine Bacteria Hyaline Casts Urine Mucus 07/01/19 12:18 Hct MCV MCHC RDW Plt Count Lymphocytes # Lymphocytes # (Manual) ABG pH ABG pO2 ABG HCO3 ABG O2 Saturation Sodium Potassium Chloride Carbon Dioxide BUN Creatinine Glucose POC Glucose (mg/dL) 186 H Phosphorus Magnesium AST Alkaline Phosphatase CK-MB (CK-2) Total Protein Albumin Urine Appearance Urine Protein Urine Blood Ur Leukocyte Esterase Urine RBC Urine WBC Amorphous Sediment Urine Bacteria Hyaline Casts Urine Mucus Assessment and Plan Assessment: * Altered mental status, likely related to toxic metabolic/uremic encephalopathy. 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 No acute process seen on the CAT scan. * Acute kidney injury * Septic shock * Diabetes * Fluid overload Plan: * Patient has been scheduled for a 2-D echo and EEG. * We will check carotid Doppler to rule out stenosis. * Patient has been on Eliquis, which has been held at this time. Resume Eliquis when medically possible. * Your medical management.
[2019-07-01 18:30] LABS: Glucose,Whole Blood 216 mg/dL (75-99)
--- NOTE | 2019-07-01 20:33 | US ---
EXAMINATION TYPE: US carotid duplex BILAT DATE OF EXAM: 07/01/2019 COMPARISON: CT CLINICAL HISTORY: Altered mental status. Patient unable to provide history. Altered mental status. EXAM MEASUREMENTS: RIGHT: Peak Systolic Velocity (PSV) cm/sec ----- Right CCA: 47.0 ----- Right ICA: 86.9 ----- Right ECA: 103.8 ICA/CCA ratio: 1.8 RIGHT: End Diastole cm/sec ----- Right CCA: 0.0 ----- Right ICA: 9.9 ----- Right ECA: 0.0 LEFT: Peak Systolic Velocity (PSV) cm/sec ----- Left CCA: 76.5 ----- Left ICA: 66.7 ----- Left ECA: 98.3 ICA/CCA ratio: 0.9 LEFT: End Diastole cm/sec ----- Left CCA: 9.5 ----- Left ICA: 7.1 ----- Left ECA: 3.8 VERTEBRALS (direction of flow): Right Vertebral: Antegrade Left Vertebral: Unable to evaluate. Rhythm: Normal Intimal thickening seen bilaterally. Wall changes seen bilateral carotid bifurcations. No elevated ve locities obtained, although exam is limited. Right distal ICA and left mid and distal ICA were not ev aluated and not well seen. Exam is limited as patient has an altered mental status and cannot move neck into proper position for ultrasound. Exam ended due to patient's refusal. IMPRESSION: Limited exam. There is antegrade flow in the right vertebral artery. Left vertebral artery was not ev aluated. Images and measurements suggest less than 50% stenosis in both internal carotid arteries. Criteria for Assigning % of Stenosis / Diameter reduction (Estimation based on the indirect measurements of the internal carotid artery velocities (ICA PSV). 1. Normal (no stenosis)=ICA PSV < 125 cm/s: ratio < 2.0: ICA EDV<40 cm/s. 2. Less than 50% stenosis=ICA PSV < 125 cm/s: ratio < 2.0: ICA EDV<40 cm/s. 3. 50 to 69% stenosis=ICA PSV of 125 to 230 cm/s: ration 2.0 ? 4.0: ICA EDV 40-100 cm/s. 4. Greater than 70% stenosis to near occlusion= ICA PSV > 230 cm/s: ratio > 4.0: ICA EDV > 100 cm/s. 5. Near occlusion= ICA PSV velocities may be low or undetectable: variable ratio and ICA EDV. 6. Total occlusion=unable to detect flow.
[2019-07-01 20:41] LABS: Glucose,Whole Blood 210 mg/dL (75-99)
[2019-07-01] MEDS: INSULIN DETEMIR (LEVEMIR) 100 UNIT/ML SYR SQ SCH (20:49)
--- NOTE | 2019-07-01 23:03 | CONS ---
CONSULTATION DATE OF SERVICE: 07/01/2019 REASON FOR CONSULTATION: Sepsis. HISTORY OF PRESENT ILLNESS: The patient is an 83-year-old female who initially presented to [facility] ER at the request of the home care nurse, as the patient was noted to be slightly weak and lethargic. On arrival at that facility, the patient was noted to be hypothermic and hypotensive. She received fluid resuscitation and subsequently was transferred to [facility] for further management. The patient on arrival to the ER was hypothermic with temperature of 92.5 degrees Fahrenheit. She was hypotensive as well and required fluid resuscitation as well as pressor support and was admitted to the ICU. Patient has been lethargic and not picking up over the last 2 days. The patient on presentation to the hospital did have a normal white count, mild lymphopenia. COVID-19 testing was not done. Urine was positive but subsequent culture came back negative. She was treated with vancomycin and Rocephin. Vancomycin was subsequently discontinued. She has been maintained on Rocephin. I was asked to see the patient today for further recommendations and concern for possible sepsis. The patient was weaned off the pressor this afternoon per the nursing staff. Most of the information has been obtained from review of the chart and talking to nursing staff, as the patient currently remains lethargic and is unable to provide any history. REVIEW OF SYSTEMS: Positive points have been mentioned in the HPI. Complete review could not be obtained because of her underlying mental status. PAST MEDICAL HISTORY: Diabetes mellitus, heart failure . PAST SURGICAL HISTORY: Pacemaker placement. SOCIAL HISTORY: No history of smoking, drinking or drug use. FAMILY HISTORY: No pertinent findings noticed. ALLERGIES: AMOXICILLIN and LIPITOR. MEDICATIONS: The patient is currently on Rocephin 1 gram daily. She is on Lovenox, estradiol, Solu- Cortef, NovoLog, Levemir, Narcan, norepinephrine, Silvadene cream, Timoptic and nystatin powder. PHYSICAL EXAMINATION: On examination, her blood pressure is 133/59 with a pulse of 70, temperature 6.1. She is 95% on 3 L nasal cannula. General description is an elderly female lying in bed in no distress. No tachypnea or accessory muscle of respiration use. HEENT examination shows no pallor or scleral icterus. Oral mucosa membrane is dry. No pharyngeal erythema or thrush. NECK: Trachea is central. No thyromegaly. LUNGS: Unlabored breathing. Decreased breath sounds in the bases. No wheeze or crackle. HEART: S1, S2. Regular rate and rhythm. No added sound. ABDOMEN: Soft. No tenderness. No guarding or rigidity. EXTREMITIES: No edema of the feet. Minimal erythema to the right leg. No blisters or any drainage. Neurologically the patient remains lethargic. Orientation could not be determined. No neck rigidity. LABS: Hemoglobin is 14.4, white count 8.5. BUN of 97, creatinine 2.70. Urine was positive. Culture negative. DIAGNOSTIC IMPRESSION AND PLAN: Patient admitted to hospital with hypotension and hypothermia which is likely multifactorial in this patient with a possible component of dehydration and right lower extremity cellulitis. She did have a positive UA, though urine culture subsequently came back negative. Chest x-ray did not show any consolidation. PLAN: 1. We will increase the dose of Rocephin to 2 grams daily. 2. Gentle IV fluid. 3. We will follow her clinical condition and further adjust medication if needed. Thank you for this consultation. Will follow this patient along with you. MMODL / IJN: [id number] /
[2019-07-02 02:00] LABS: Glucose,Whole Blood 165 mg/dL (75-99)
[2019-07-02] MEDS: INSULIN ASPART (NovoLOG) 100 UNIT/ML VIAL SQ SCH ×5 (02:01→20:15)
[2019-07-02] MEDS: HYDROCORTISONE SUCCINATE 100 MG/2 ML VIAL IV SCH (04:23)
[2019-07-02 05:01] LABS: Anisocytosis Slight; HCT 42.6 % (34.0-46.0); HGB 13.2 gm/dL (11.4-16.0); Hypochromasia Moderate; MCH 30.8 pg (25.0-35.0); MCHC 30.9 g/dL (31.0-37.0); MCV 99.5 fL (80.0-100.0); Macrocytosis Slight; Mean Platelet Volume 11.2; RBC 4.28 m/uL (3.80-5.40); RDW 16.7 % (11.5-15.5)
[2019-07-02 05:08] LABS: Calcium 9.4 mg/dL (8.4-10.2); Potassium 3.7 mmol/L (3.5-5.1)
[2019-07-02 06:18] LABS: Platelet Count 96 k/uL (150-450)
[2019-07-02 06:50] LABS: Glucose,Whole Blood 158 mg/dL (75-99)
[2019-07-02] MEDS: NOREPINEPHRINE 32 MG in SODIUM CHLORIDE 0.9% 218 ML IV SCH (07:11)
--- NOTE | 2019-07-02 08:09 | XR ---
EXAMINATION TYPE: XR chest 1V portable DATE OF EXAM: 07/02/2019 COMPARISON: Prior chest x-ray 06/30/2019 HISTORY: Shortness of breath TECHNIQUE: Single frontal view of the chest is obtained. FINDINGS: Right jugular central venous catheter shows the distal tip in the right atrium. Generator is in left pectoral region, there are leads in right atrium and ventricle as on prior. Aorta is dense . Heart size is stable and mildly prominent, patient is rotated. Bibasilar increased density persists , the hemidiaphragms are obscured. No evident pneumothorax. IMPRESSION: Findings are similar to prior exam. Correlate for basilar effusions, associated atelecta sis versus pneumonia, edema.
--- NOTE | 2019-07-02 08:58 | ECHOF ---
Referral Reason:Assess LV function MEASUREMENTS -------- HEIGHT: 157.5 cm WEIGHT: 106.6 kg BP: 113/54 RVIDd: 4.2 cm (< 3.3) IVSd: 1.4 cm (0.6 - 1.1) LVIDd: 3.1 cm (3.9 - 5.3) LVPWd: 1.7 cm (0.6 - 1.1) IVSs: 1.5 cm LVIDs: 2.3 cm LVPWs: 1.6 cm LAESV Index (A-L): 40.31 ml/m Ao Diam: 3.1 cm (2.0 - 3.7) AV Cusp: 1.5 cm (1.5 - 2.6) AR PHT: 389 ms RAP: 5.00 mmHg RVSP: 60.21 mmHg FINDINGS -------- Sinus rhythm with extra systolic beats. Pacerwire seen in RV and RA. This was a technically difficult study with suboptimal apical views. The left ventricular size is normal. There is moderate concentric left ventricular hypertrophy. O verall left ventricular systolic function is low-normal with, an EF between 50 - 55 %. Left ventric ular fillimg pressure cannot be estimated due to severe mitral annular calcification. The right ventricle is moderate to severely enlarged. LA is severely dilated >40 ml/m2 The right atrium is moderately enlarged. 5.0mg of Lumason was utilized for enhancement of images There is mild aortic valve sclerosis. There is mild aortic regurgitation. There is no evidence of aortic stenosis. Severe mitral annular calcification present. Hauwsdii-nh-huxkbo mitral regurgitation is present. Moderate mitral stenosis , with a MVA of 1.9cm (by PHT) Moderate to severe tricuspid regurgitation present. There is severe pulmonary hypertension. The r ight ventricular systolic pressure, as measured by Doppler, is 60.21mmHg. The pulmonic valve was not well visualized. There is no pulmonic regurgitation present. The aortic root size is normal. IVC Not well visulized. There is no pericardial effusion. CONCLUSIONS -------- 1. There is moderate concentric left ventricular hypertrophy. 2. Overall left ventricular systolic function is low-normal with, an EF between 50 - 55 %. 3. Left ventricular fillimg pressure cannot be estimated due to severe mitral annular calcification. 4. The right ventricle is moderate to severely enlarged. 5. LA is severely dilated >40 ml/m2 6. The right atrium is moderately enlarged. 7. 5.0mg of Lumason was utilized for enhancement of images 8. There is mild aortic valve sclerosis. 9. There is mild aortic regurgitation. 10. Severe mitral annular calcification present. 11. Gpjurzpk-dj-dnsecd mitral regurgitation is present. 12. Moderate mitral stenosis. 13. , with a MVA of 1.9cm (by PHT) 14. Moderate to severe tricuspid regurgitation present. 15. There is severe pulmonary hypertension. WEATHERIZATION AND HOUSING INSPECTOR: Christelle Benton RDCS
[2019-07-02] MEDS: ESTRADIOL 0.5 MG TAB PO SCH (09:12)
[2019-07-02] MEDS: ENOXAPARIN 30 MG/0.3 ML SYRINGE SQ SCH (09:12)
[2019-07-02] MEDS: TIMOLOL 0.5% OPHTH DROPS 5 ML BTL BOTH EYES SCH (09:13)
[2019-07-02] MEDS: NYSTATIN 100,000 UNIT/GM POWD 15 GM TOPICAL SCH ×3 (09:13→20:17)
[2019-07-02] MEDS ORDERED: FUROSEMIDE 10 MG/ML 10 ML VIAL IV STA (10:15)
[2019-07-02] MEDS: POTASSIUM CHLORIDE 20 MEQ in WATER FOR INJECTION 1 100ML.BAG IVPB SCH ×2 (10:42→13:08)
--- NOTE | 2019-07-02 11:10 | P.PN ---
Subjective Patient is seen in follow-up for acute kidney injury. Renal function is fairly stable. Urine output 50-70 mL an hour. She received 80 mg of IV Lasix in June 29 and . Off vasopressors. Brain CT yesterday revealed subacute CVA. Remains confused. Vital signs are stable. Currently off Levophed. General: The patient appeared well nourished and normally developed. HEENT: Head exam is unremarkable. Neck is without jugular venous distension. LUNGS: Lungs are clear to auscultation and percussion. Breath sounds decreased. HEART: Rate and Rhythm are regular. ABDOMEN: Non-tender. No distension. EXTREMITITES: 1+ edema. Objective - Vital Signs Vital signs: Vital Signs Temp 96.1 F L 07/02/19 08:00 Pulse 68 07/02/19 09:00 Resp 18 07/02/19 09:00 BP 119/68 07/02/19 09:00 Pulse Ox 93 L 07/02/19 09:00 Intake & Output 07/01/19 07/02/19 07/02/19 18:59 06:59 18:59 Intake Total 291.965 273 69 Output Total 924 795 175 Balance -632.035 -522 -106 Weight 106.6 kg Intake: IV 240 273 69 0.9 240 240 60 pressure bag 33 9 Intake, IV Titration 51.965 Amount Norepinephrine 32 mg In 51.965 Sodium Chloride 0.9% 218 ml @ 0.05 MCG/KG/MIN 2. 445 mls/hr IV [facility] Rx#:[id number] Oral 0 Output: Urine 924 795 175 Other: Voiding Method Indwelling Catheter Indwelling Catheter Indwelling Catheter - Labs CBC & Chem 7: 07/02/19 04:38 07/02/19 04:38 Labs: Abnormal Lab Results - Last 24 Hours (Table) 07/01/19 07/01/19 07/01/19 Range/Units 12:18 18:27 20:40 MCHC (31.0-37.0) g/dL RDW (11.5-15.5) % Plt Count (150-450) k/uL Chloride (98-107) mmol/L BUN (7-17) mg/dL Creatinine (0.52-1.04) mg/dL Glucose (74-99) mg/dL POC Glucose (mg/dL) 186 H 216 H 210 H (75-99) mg/dL 07/02/19 07/02/19 07/02/19 Range/Units 01:58 04:38 04:38 MCHC 30.9 L (31.0-37.0) g/dL RDW 16.7 H (11.5-15.5) % Plt Count 96 L (150-450) k/uL Chloride 112 H (98-107) mmol/L BUN 99 H (7-17) mg/dL Creatinine 2.77 H (0.52-1.04) mg/dL Glucose 188 H (74-99) mg/dL POC Glucose (mg/dL) 165 H (75-99) mg/dL 07/02/19 Range/Units 06:48 MCHC (31.0-37.0) g/dL RDW (11.5-15.5) % Plt Count (150-450) k/uL Chloride (98-107) mmol/L BUN (7-17) mg/dL Creatinine (0.52-1.04) mg/dL Glucose (74-99) mg/dL POC Glucose (mg/dL) 158 H (75-99) mg/dL Microbiology - Last 24 Hours (Table) 06/29/19 04:00 Blood Culture - Preliminary Blood No Growth after 72 hours Assessment and Plan Plan: Assessment: 1. Acute kidney injury secondary to ATN secondary to hypotension/sepsis. Renal function stable. Creatinine 2.77 today. 2. Chronic kidney disease stage III secondary to nephrosclerosis with baseline creatinine near 1.6. 3. Mild hyperkalemia secondary to acute kidney injury and metabolic acidosis. Improved. 4. Metabolic acidosis secondary to acute kidney injury. Better. 5. Diabetes mellitus. 6. Septic shock. Possibly UTI. COVID-19 test was negative at [facility]. 7. Fluid overload. 8. Subacute CVA. 9. Acute on chronic diastolic CHF with moderate to severe mitral regurgitation and moderate mitral stenosis. Plan: Repeat Lasix 80 mg IV once today. Overall the patient is not a good candidate for long-term renal replacement therapy. Continue to assess daily. Overall prognosis guarded.
[2019-07-02 11:54] LABS: Glucose,Whole Blood 136 mg/dL (75-99)
--- NOTE | 2019-07-02 12:07 | P.PN ---
Subjective Progress Note Date: 07/02/19 Principal diagnosis: Altered mental status with hypothermia, hypotension, suspected underlying sepsis The patient is seen today 07/02/2019 in follow-up in the intensive care unit. She remains confused, lethargic. Computed tomography scan of the brain revealed chronic small vessel disease, correlate for possible subacute ischemia. Carotid Dopplers revealed less than 50% stenosis bilaterally. She been seen and evaluated by neurology who feels the ischemia in the right parietal region is old. Suspect toxic metabolic/uremic encephalopathy. EEG is pending. Echocardiogram revealed preserved left ventricular systolic function with ejection fraction 50-55%. There is moderate to severe mitral regurgitation. Moderate mitral stenosis. Severe pulmonary hypertension. No evidence of vegetation. Today's chest x-ray reveals basilar effusions/atelectasis. She is currently maintaining O2 saturations in the low 90s on 3 L/m per nasal cannula. She is currently afebrile. Sinus rhythm with controlled rate. Blood pressure stable. Norepinephrine is off. She has 0.9 normal sitting at 20 miles per hour. She is maintained on ceftriaxone. White count 9.0. Hemoglobin 13.2. Creatinine 2.77. Blood and urine cultures reveal no growth. Objective - Vital Signs Vital signs: Vital Signs Temp 96.1 F L 07/02/19 08:00 Pulse 70 07/02/19 11:00 Resp 12 07/02/19 11:00 BP 115/62 07/02/19 11:00 Pulse Ox 94 L 07/02/19 11:00 Intake & Output 07/01/19 07/02/19 07/02/19 18:59 06:59 18:59 Intake Total 291.965 273 115 Output Total 924 795 350 Balance -632.035 -522 -235 Weight 106.6 kg Intake: IV 240 273 115 0.9 240 240 100 pressure bag 33 15 Intake, IV Titration 51.965 Amount Norepinephrine 32 mg In 51.965 Sodium Chloride 0.9% 218 ml @ 0.05 MCG/KG/MIN 2. 445 mls/hr IV .Q24H [facility] Rx#:[id number] Oral 0 Output: Urine 924 795 350 Other: Voiding Method Indwelling Catheter Indwelling Catheter Indwelling Catheter - Exam GENERAL EXAM: Altered, lethargic, confused 83-year-old female patient, on 2 L nasal cannula, comfortable in no apparent distress. HEAD: Normocephalic. EYES: Normal reaction of pupils, equal size. NOSE: Clear with pink turbinates. THROAT: No erythema or exudates. NECK: No masses, no JVD. CHEST: No chest wall deformity. LUNGS: Equal air entry with crackles in the bilateral posterior bases. CVS: S1 and S2 normal with no audible murmur, regular rhythm. ABDOMEN: No hepatosplenomegaly, normal bowel sounds, no guarding or rigidity. SPINE: No scoliosis or deformity SKIN: No rashes CENTRAL NERVOUS SYSTEM: Difficult to arouse, altered, flat affect, tone is normal in all 4 extremities. EXTREMITIES: There is 1+ peripheral edema. No clubbing, no cyanosis. Peripheral pulses are intact. - Labs CBC & Chem 7: 07/02/19 04:38 07/02/19 04:38 Labs: Abnormal Lab Results - Last 24 Hours (Table) 07/01/19 07/01/19 07/01/19 Range/Units 12:18 18:27 20:40 MCHC (31.0-37.0) g/dL RDW (11.5-15.5) % Plt Count (150-450) k/uL Chloride (98-107) mmol/L BUN (7-17) mg/dL Creatinine (0.52-1.04) mg/dL Glucose (74-99) mg/dL POC Glucose (mg/dL) 186 H 216 H 210 H (75-99) mg/dL 07/02/19 07/02/19 07/02/19 Range/Units 01:58 04:38 04:38 MCHC 30.9 L (31.0-37.0) g/dL RDW 16.7 H (11.5-15.5) % Plt Count 96 L (150-450) k/uL Chloride 112 H (98-107) mmol/L BUN 99 H (7-17) mg/dL Creatinine 2.77 H (0.52-1.04) mg/dL Glucose 188 H (74-99) mg/dL POC Glucose (mg/dL) 165 H (75-99) mg/dL 07/02/19 Range/Units 06:48 MCHC (31.0-37.0) g/dL RDW (11.5-15.5) % Plt Count (150-450) k/uL Chloride (98-107) mmol/L BUN (7-17) mg/dL Creatinine (0.52-1.04) mg/dL Glucose (74-99) mg/dL POC Glucose (mg/dL) 158 H (75-99) mg/dL Microbiology - Last 24 Hours (Table) 06/29/19 04:00 Blood Culture - Preliminary Blood No Growth after 72 hours Assessment and Plan Assessment: 1 Altered mental status of unclear etiology with initial presentation of hypothermia and hypotension. Currently off pressors. Blood and urine cultures are negative. Computed tomography scan of the brain revealed chronic small vessel disease with suspected chronic ischemia. Neurology is on the case. EEG is pending. 2 Acute kidney injury secondary to acute tubular necrosis. Creatinine 2.77. 3 Thrombocytopenia 4 Diabetes mellitus 5 Obesity 6 Vitamin D deficiency 7 History of environmental ALLERGIES Plan: The patient was seen and evaluated by Dr. Lopez Remains confused and lethargic Computed tomography scan of the brain reviewed. Neurology on the case. EEG pending Blood and urine cultures reveal no growth Currently on ceftriaxone Lovenox for DVT prophylaxis Discontinue hydrocortisone Continue to monitor her here in the ICU Overall prognosis quite guarded She is a DO NOT RESUSCITATE/DO NOT INTUBATE CODE STATUS I, the cosigning physician, performed a history & physical examination of the patient. Lungs sounds with crackles in the bilateral posterior bases. Maintaining good O2 saturations in the 90s on 2 L/m per nasal cannula. I discussed the assessment and plan of care with my nurse practitioner, Amanda De La Rosa. I attest to the above note as dictated by her. Time with Patient: Greater than 30
--- NOTE | 2019-07-02 15:00 | EEG ---
ELECTROENCEPHALOGRAM REPORT DATE OF SERVICE: 07/02/2019 PREAMBLE: An 83-year-old female with altered mental status. This study is performed to evaluate for encephalopathy, rule out seizures. EEG FINDINGS: A portable 21 channel routine EEG was recorded in a patient utilizing 10/20 international system with bipolar and referential montages. The recording starts and continues with presence of diffuse moderate voltage activity in mixed theta and delta activity, with very frequent persistent biphasic waves seen in the bihemispheric region. Some sharp-appearing waves were also seen, but did not appear classically epileptiform. Different stages of sleep were not seen. Photic driving response was not seen. IMPRESSION: This is a severely abnormal EEG due to: 1. Background slowing. 2. Triphasic waves present excessively throughout the study. 3. Some intermittent sharply-contoured waves. The background slowing is suggestive of generalized cerebral dysfunction, as can be seen with toxic metabolic encephalopathies or due to diffuse structural brain abnormality. The presence of triphasic waves suggest hepatic encephalopathy. Clinical correlation is recommended. Some sharply contoured waves were seen, which may suggest underlying cortical irritability as well. Clinical correlation and followup EEG are recommended. MMODL / IJN: [id number] / [facility]
--- NOTE | 2019-07-02 16:45 | P.PN ---
Progress Note - Text Progress Note Date: 07/02/19 Chief Complaint: Low blood pressure History of presenting complaint: This is a 83-year-old female patient of Dr. Ralph Jeffrey. Patient has a wound care nurse that comes on at home. For that the patient was not looking well. [facility] Blood pressure was the systolic 60s. Patient was hypothermic and also decreasing urine output. Particular distress Hospital and initially getting a nice U patient is given about 3 L of fluid. Oriented is also given bicarbonate. Patient's been on levo fed drip and dobutamine drip. Patient also was hypoglycemic. Patient has a bear hugger. Lethargic not really able to give much of her history but arousable. 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 Dr. Lopez. Admitted with-hypotensive shock from fluid depletion, severe hypothermia, UTI acute metabolic encephalopathy, hypoglycemia. Admitted to ICU. Started on IV ceftriaxone, IV dobutamine and IV levo fed. On IV hydrocortisone. Yhyto-[id number] tomography scan of the brain done yesterday. Suggestion of possible stroke. Patient remains to be somewhat delirious. Nurse told me that the family had informed about 2 weeks ago patient's had slurred speech. But is able to carry on. Patient is taken off levo fed. Urine output has been fair. On 3 L nasal cannula. Telemetry shows been placed. Nurse and myself noted there may be subtle weakness on the left side which is difficult to assess. Admitting review of system could not be done-patient delirious Active Medications Enoxaparin Sodium (Lovenox) 30 mg SQ DAILY [facility] Last Admin: 07/02/19 09:12 Dose: 30 mg Documented by: Estradiol (Estrace) 0.25 mg PO Q48H [facility] Last Admin: 07/02/19 09:12 Dose: Not Given Documented by: Norepinephrine Bitartrate 32 (mg/ Sodium Chloride) 250 mls @ 2.445 mls/hr IV .Q24H [facility]; Protocol Last Admin: 07/02/19 07:11 Dose: Not Given Documented by: Ceftriaxone Sodium 2 gm/ (Sodium Chloride) 50 mls @ 100 mls/hr IVPB Q24HR [facility] Last Admin: 07/02/19 09:12 Dose: 100 mls/hr Documented by: Insulin Aspart (Novolog) 0 unit SQ [id number] [facility]; Protocol Last Admin: 07/02/19 13:06 Dose: 1 unit Documented by: Insulin Detemir (Levemir) 12 unit SQ HS [facility] Last Admin: 07/01/19 20:49 Dose: 12 unit Documented by: Naloxone HCl (Narcan) 0.2 mg IV Q2M PRN PRN Reason: Opioid Reversal Nystatin (Mycostatin Powder) 1 applic TOPICAL TID [facility] Last Admin: 07/02/19 09:13 Dose: 1 applic Documented by: Silver Sulfadiazine (Silvadene Cream) 1 applic TOPICAL DAILY [facility] Last Admin: 07/02/19 09:13 Dose: 1 applic Documented by: Timolol Maleate (Timoptic) 1 drops BOTH EYES DAILY [facility] Last Admin: 07/02/19 09:13 Dose: 1 drops Documented by: Physical examination: VITAL SIGNS: 96, 70, 21, 140 57, 95% on 3 L GENERAL: laying in bed, still delirious EYES: Pupils equal. Conjunctiva normal. HEENT: External appearance of nose and ears normal, oral cavity dry. NECK: JVD unable to assess; masses not palpable. HEART: First and second heart sounds are normal; no edema. LUNGS: Respiratory rate normal; decreased breath sounds. ABDOMEN: Soft, nontender, liver spleen not palpable, no masses palpable. PSYCH: Delirious does call out words at times. NEUROLOGICAL: Possible some weakness on the left arm and left leg. INVESTIGATIONS, reviewed in the clinical context: White count 9 hemoglobin 13.2 platelets 96 potassium 3.7 bun 99 creatinine 2.77 Computed tomography scan of the brain-possible stroke, chronic changes EEG-evidence of cerebral dysfunction 2-D echo-EF 50-55%, moderate concentric LVH Previous testing White count 5.2 hemoglobin 14.4 platelets 103 potassium 5.5 bun 81 creatinine 2.26 Glucose 61 TSH 4.0 UA positive for WBC leukoesterase EKG tracing personally reviewed by me-ventricle paced rhythm Chest x-ray film personally reviewed by me-portable, borderline cardiomegaly, lung victor clear Urine culture-negative; blood culture-negative Assessment: -Hypotensive shock, possibly fluid depletion, could be also septic shock -levo fed stopped today -Severe hypo-thermia possibly from UTI and electrolyte abnormalities, POA- corrected -Acute metabolic encephalopathy with delirium-improving -Subacute stroke possible in the right MCA territory with some subtle left-sided weakness -Diabetes mellitus type 2 chronically on insulin, uncontrolled with hypoglycemia-improved -Chronically on eliquis -Possibly acute UTI from cystitis with sepsis shock Plan: Patient currently on ceftriaxone, insulin, taken off levo fed. Prognosis is guarded. Advanced care planning: Had a very lengthy talk with patient's daughter Fozia telephone #[phone] and 2 other siblings. Give Them and detail a bit from yesterday. The clinical picture was stroke was also incorporated. They understand the patient not doing too well. In general does prognosis was discussed. Patient is currently no code. Plan is to continue the same treatment plan see how she does in next 24- 48 hours. Depending on the clinical picture and if any meaningful outcome is not obtained patient may be then considered for hospice. Patient daughter Fozia will check in to see and get more information before deciding the same. Patient's cousin is the d POA. About 25 minutes was spent on this.
--- NOTE | 2019-07-02 17:09 | P.PN ---
Subjective Progress Note Date: 07/02/19 Patient continues to be encephalopathic, moaning. No seizure activity noted. Patient not able to answer questions. Keeps her eyes closed. Objective - Vital Signs Vital signs: Vital Signs Temp 95.3 F L 07/02/19 16:00 Pulse 70 07/02/19 16:00 Resp 9 L 07/02/19 16:00 BP 115/60 07/02/19 16:00 Pulse Ox 95 07/02/19 16:00 Intake & Output 07/01/19 07/02/19 07/02/19 18:59 06:59 18:59 Intake Total 291.965 273 207 Output Total 382 130 4593 Balance -632.035 -522 -843 Weight 106.6 kg Intake: IV 240 273 207 0.9 240 240 180 pressure bag 33 27 Intake, IV Titration 51.965 Amount Norepinephrine 32 mg In 51.965 Sodium Chloride 0.9% 218 ml @ 0.05 MCG/KG/MIN 2. 445 mls/hr IV .Q24H COUNTS INCLUDE 234 BEDS AT THE [facility] Rx#:[id number] Oral 0 Output: Urine 725 408 4069 Other: Voiding Method Indwelling Catheter Indwelling Catheter Indwelling Catheter - Exam Patient is moaning, groaning. Patient obviously encephalopathic. Patient's face is symmetric. Pupils are round and reacting. Patient withdraws to painful stimuli equally in all 4 extremities. - Labs CBC & Chem 7: 07/02/19 04:38 07/02/19 04:38 Labs: Abnormal Lab Results - Last 24 Hours (Table) 07/01/19 07/01/19 07/02/19 Range/Units 18:27 20:40 01:58 MCHC (31.0-37.0) g/dL RDW (11.5-15.5) % Plt Count (150-450) k/uL Chloride (98-107) mmol/L BUN (7-17) mg/dL Creatinine (0.52-1.04) mg/dL Glucose (74-99) mg/dL POC Glucose (mg/dL) 216 H 210 H 165 H (75-99) mg/dL 07/02/19 07/02/19 07/02/19 Range/Units 04:38 04:38 06:48 MCHC 30.9 L (31.0-37.0) g/dL RDW 16.7 H (11.5-15.5) % Plt Count 96 L (150-450) k/uL Chloride 112 H (98-107) mmol/L BUN 99 H (7-17) mg/dL Creatinine 2.77 H (0.52-1.04) mg/dL Glucose 188 H (74-99) mg/dL POC Glucose (mg/dL) 158 H (75-99) mg/dL 07/02/19 Range/Units 11:53 MCHC (31.0-37.0) g/dL RDW (11.5-15.5) % Plt Count (150-450) k/uL Chloride (98-107) mmol/L BUN (7-17) mg/dL Creatinine (0.52-1.04) mg/dL Glucose (74-99) mg/dL POC Glucose (mg/dL) 136 H (75-99) mg/dL Microbiology - Last 24 Hours (Table) 06/29/19 04:00 Blood Culture - Preliminary Blood No Growth after 72 hours Assessment and Plan Assessment: * Altered mental status, likely related to toxic metabolic/uremic encephalopathy. 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 No acute process seen on the CAT scan. * Acute kidney injury * Septic shock * Diabetes * Fluid overload Plan: * Patient most likely has toxic metabolic encephalopathy. Patient's recent history of hypotension, septic shock, acute renal failure, minimally elevated liver enzymes other likely causes. * 2-D echo showed moderate concentric LVH. EF is 50-55%. Left atrium is severely dilated. Right atrium is moderately dilated. Severe mitral annular calcification. Moderate to severe mitral regurgitation. Moderate mitral stenosis. Moderate to severe tricuspid regurgitation. There is severe pulmonary hypertension. * EEG revealed background slowing and triphasic waves throughout the study consistent with severe toxic metabolic encephalopathy. Some Sharply contoured waves were seen, but did not appear clearly epileptiform. * Carotid Doppler showed no definite stenosis. Antegrade flow in the right vertebral artery. Left vertebral artery not evaluated. * Patient has been on Eliquis, which has been held at this time. Resume Eliquis when medically possible. * Your medical management. * Neurology will sign off. Please call neurology if any further concerns.
[2019-07-02 17:48] LABS: Glucose,Whole Blood 120 mg/dL (75-99)
[2019-07-02 20:08] LABS: Glucose,Whole Blood 124 mg/dL (75-99)
[2019-07-02] MEDS: INSULIN DETEMIR (LEVEMIR) 100 UNIT/ML SYR SQ SCH (20:16)
--- NOTE | 2019-07-03 00:02 | PN ---
PROGRESS NOTE DATE OF SERVICE: 07/02/2019 REASON FOR FOLLOWUP: Right lower extremity cellulitis. INTERVAL HISTORY: The patient is currently afebrile. Patient is hemodynamically stable. The patient remains to be lethargic and not waking up though did respond to her name, did not answer any questions. No vomiting or diarrhea has been reported. PHYSICAL EXAMINATION: Blood pressure 98/79 with a pulse of 78, temperature 97. She is 96% on 3 L nasal cannula. General description is an elderly female lying in bed in no distress. Respiratory system: Unlabored breathing, decreased breath sounds at the base. No wheeze. HEART: S1, S2. Regular rate and rhythm. Abdomen soft, no tenderness. Legs are currently wrapped up. No obvious drainage on the dressing. LABS: Hemoglobin 13.1, white count of 9.0. BUN of 99, creatinine is 2.77. DIAGNOSTIC IMPRESSION AND PLAN: Patient with acute mental status changes which is likely multifactorial with possible component of lower extremity cellulitis and currently no other clinical focus of infection. Neurology is on the case. We will give the patient Rocephin and will monitor clinical course closely. MMODL / IJN: [id number] /
[2019-07-03] MEDS: INSULIN ASPART (NovoLOG) 100 UNIT/ML VIAL SQ SCH ×5 (01:34→20:34)
[2019-07-03 01:36] LABS: Glucose,Whole Blood 116 mg/dL (75-99)
[2019-07-03 04:38] LABS: Anisocytosis Slight; HGB 13.6 gm/dL (11.4-16.0); Hypochromasia Marked; MCH 30.3 pg (25.0-35.0); MCHC 30.1 g/dL (31.0-37.0); MCV 100.6 fL (80.0-100.0); Macrocytosis Slight; RBC 4.48 m/uL (3.80-5.40); RDW 16.5 % (11.5-15.5)
[2019-07-03 04:49] LABS: Platelet Count 87 k/uL (150-450)
[2019-07-03 05:05] LABS: Calcium 9.4 mg/dL (8.4-10.2); Potassium 3.4 mmol/L (3.5-5.1)
[2019-07-03] MEDS: NOREPINEPHRINE 32 MG in SODIUM CHLORIDE 0.9% 218 ML IV SCH (05:32)
[2019-07-03 07:00] LABS: Glucose,Whole Blood 116 mg/dL (75-99)
[2019-07-03] MEDS ORDERED: POTASSIUM CHLORIDE 20 MEQ in WATER FOR INJECTION 1 100ML.BAG IVPB ONE ×2 (07:00→09:00)
--- NOTE | 2019-07-03 09:18 | P.PN ---
Subjective Progress Note Date: 07/03/19 Principal diagnosis: This is a 83-year-old female. With hypotension and has acute kidney injury. A computed tomography scan showed findings consistent with chronic small vessel d isease possible subacute ischemia, echocardiogram was unremarkable with 50-55% ejection fraction right ventricle is enlarged with dilatated of the left atrium, severe pulmonary hypertension the cause of the hypo-tension was not clear she is not septic with negative urine and blood culture, normal TSH and cortisol and normal troponin. Currently she is on nasal cannula oxygen groaning and moaning. Does not respond to any commands Objective - Vital Signs Vital signs: Vital Signs Temp 97.0 F L 07/03/19 04:00 Pulse 70 07/03/19 07:00 Resp 29 H 07/03/19 07:00 BP 104/67 07/03/19 07:00 Pulse Ox 94 L 07/03/19 07:00 Intake & Output 07/02/19 07/03/19 07/03/19 18:59 06:59 18:59 Intake Total 276 276 23 Output Total 1270 545 45 Balance -994 -269 -22 Weight 106.9 kg Intake: IV 276 276 23 0.9 240 240 20 pressure bag 36 36 3 Output: Urine 1270 545 45 Other: Voiding Method Indwelling Catheter Indwelling Catheter Examination she is obtunded groans and moans Neck is supple no facial asymmetry No JVP noted Lungs are significant for diminished breath sounds Chest x-ray shows possible CHF Heart sounds are unremarkable he is probably paced rhythm Abdomen soft nontender distended no masses felt Extremity exam was moderate edema Neurologically as mentioned above - Labs CBC & Chem 7: 07/03/19 04:15 07/03/19 04:15 Labs: Abnormal Lab Results - Last 24 Hours (Table) 07/02/19 07/02/19 07/02/19 Range/Units 11:53 17:47 20:07 MCV (80.0-100.0) fL MCHC (31.0-37.0) g/dL RDW (11.5-15.5) % Plt Count (150-450) k/uL Sodium (137-145) mmol/L Potassium (3.5-5.1) mmol/L Chloride (98-107) mmol/L BUN (7-17) mg/dL Creatinine (0.52-1.04) mg/dL Glucose (74-99) mg/dL POC Glucose (mg/dL) 136 H 120 H 124 H (75-99) mg/dL 07/03/19 07/03/19 07/03/19 Range/Units 01:33 04:15 04:15 MCV 100.6 H (80.0-100.0) fL MCHC 30.1 L (31.0-37.0) g/dL RDW 16.5 H (11.5-15.5) % Plt Count 87 L (150-450) k/uL Sodium 148 H (137-145) mmol/L Potassium 3.4 L (3.5-5.1) mmol/L Chloride 112 H (98-107) mmol/L BUN 103 H* (7-17) mg/dL Creatinine 2.61 H (0.52-1.04) mg/dL Glucose 108 H (74-99) mg/dL POC Glucose (mg/dL) 116 H (75-99) mg/dL 07/03/19 Range/Units 06:59 MCV (80.0-100.0) fL MCHC (31.0-37.0) g/dL RDW (11.5-15.5) % Plt Count (150-450) k/uL Sodium (137-145) mmol/L Potassium (3.5-5.1) mmol/L Chloride (98-107) mmol/L BUN (7-17) mg/dL Creatinine (0.52-1.04) mg/dL Glucose (74-99) mg/dL POC Glucose (mg/dL) 116 H (75-99) mg/dL Microbiology - Last 24 Hours (Table) 06/29/19 04:00 Blood Culture - Preliminary Blood No Growth after 96 hours Assessment and Plan Assessment: Impression 1. Acute kidney injury secondary to hypotension and ATN stable renal function. Creatinine stable at 2.7 for the last 3 days. She is on vancomycin, trough level is 22.2 on 07/01/2019 in the nephrotoxic range 2. Chronic kidney disease, stage III Baseline creatinine supposedly 1.6. 3. Admitted with hypotension was not very clear. Has been negative so far. Blood pressures improved 4. Pulmonary hypertension by echocardiogram but good ejection fraction 5. Congestive heart failure. 6. Questionable paced rhythm. 7. Hypernatremia secondary to acute kidney injury. Recommendations; 1. If possible discontinue the vancomycin as there is no evidence of any sepsis 2. Use alternative antibiotics. 3. Use D5W at 75 mL an hour, 4. maintain diuretic. 5. Replace potassium with a total of 40 mEq. Can be given by mouth or IV. 6. Monitor potassium and sodium
[2019-07-03] MEDS ORDERED: DEXTROSE 5% IN WATER 1,000 ML IV ONE (09:19)
[2019-07-03] MEDS ORDERED: FUROSEMIDE 10 MG/ML 2 ML VIAL IV SCH (09:30)
[2019-07-03] MEDS: ENOXAPARIN 30 MG/0.3 ML SYRINGE SQ SCH (09:31)
[2019-07-03] MEDS: NYSTATIN 100,000 UNIT/GM POWD 15 GM TOPICAL SCH ×3 (09:32→20:36)
[2019-07-03] MEDS: TIMOLOL 0.5% OPHTH DROPS 5 ML BTL BOTH EYES SCH (09:32)
--- NOTE | 2019-07-03 12:17 | PN ---
PROGRESS NOTE PULMONARY/CRITICAL CARE PROGRESS NOTE: DATE OF SERVICE: 07/03/2019 Critical care time greater than 30 minute. This is an 83-year-old female who was admitted back on June 28. She initially came in with acute mental status changes, hypotension and hypothermia, with suspected sepsis. This 83-year-old female was seen again today on 07/02. She remains in the ICU. Her CT scan revealed chronic small vessel disease. There could have been subacute ischemia according to the radiologist. Dopplers revealed less than 50% stenosis bilaterally. EEG showed diffuse slowing consistent with toxic/metabolic encephalopathy. Anyway, the patient continues to have a very poor mental status. Initially, when she presented, she came in with mental status changes, hypotension and hypothermia. We suspected sepsis. She is on empiric antibiotics. There is no obvious proven infection at this time. The patient did also have an echocardiogram which revealed a preserved left ventricular ejection fraction. Anyway, the patient remains on O2 at 3 L and saline at 10 mL an hour. She has a very poor mental status. Norepinephrine has been weaned off. Again, cultures are all negative. Current vital signs include a temperature 94.1, heart rate 68, respiratory rate 16, blood pressure 128/75 mean 92 and 3 L saturation is between 92% and 96%. Appears in no acute distress. She just moans. Does not respond to verbal stimuli. Does not open her eyes. HEENT: Examination is grossly unremarkable. Nasal O2 noted. NECK: Supple. Full range of motion. No adenopathy. CARDIOVASCULAR: Examination reveals regular rhythm and rate. Heart rate 70. S1, S2 normal. There is no S3, S4, or murmur. LUNGS: Reveal a few scattered rhonchi. No wheezes or crackles. ABDOMEN: Obese, bowel sounds are not noted. EXTREMITIES: Intact. Minimal edema. SKIN: Without rash. NEUROLOGIC: Examination is difficult to assess. She does move all 4 extremities. She does not follow simple commands. She is not alert and oriented. LAB DATA: Reviewed. White count is 9, hemoglobin 13.6, hematocrit 45.0, platelet count 87,000. Sodium 148, potassium 3.4, chloride 112, CO2 is 29, anion gap is 7. BUN and creatinine were 103 and 2.61. Microbiology is currently all negative. No chest x-rays to report. The last chest x-ray was done yesterday and showed some associated atelectasis versus effusion at the bases with some mild edema. CURRENT MEDICATIONS: Reviewed. She is on Rocephin empirically, dextrose at 50 mL an hour, Lovenox, Estrace, Lasix which has been reduced, insulin, Narcan, norepinephrine, which has been weaned off, nystatin powder, and silver sulfadiazine cream. ASSESSMENT: 1. Altered mental status, of unclear etiology. CT showed nothing acute. An EEG was consistent with slowing, that was consistent with either toxic or metabolic encephalopathy. 2. Initial presentation with mental status changes, hypothermia and hypotension, the patient's blood pressure is much improved and norepinephrine has been weaned off. 3. Possible sepsis, although all culture data is negative. The patient remains on empiric antibiotic. 4. Acute kidney injury secondary to acute tubular necrosis. 5. Thrombocytopenia. 6. Diabetes mellitus. 7. Obesity. 8. Vitamin D deficiency. 9. History of environmental allergies. PLAN: The patient's overall condition remains poor. We are going to have to make a decision about possible PEG tube placement. She is a DNR. The commanding officer traffic division changed IVs to D5W because of the developing hypernatremia and hyperchloremia. Overall prognosis remains poor. Will continue to follow. Additional recommendations and suggestions are forthcoming. Critical care time more than 30 minutes. MMODL / IJN: [id number] /
[2019-07-03 13:16] LABS: Glucose,Whole Blood 112 mg/dL (75-99)
--- NOTE | 2019-07-03 16:53 | P.PN ---
Progress Note - Text Progress Note Date: 07/03/19 Chief Complaint: Low blood pressure History of presenting complaint: This is a 83-year-old female patient of Dr. Ralph Jeffrey. Patient has a wound care nurse that comes on at home. For that the patient was not looking well. [facility] Blood pressure was the systolic 60s. Patient was hypothermic and also decreasing urine output. Particular distress Hospital and initially getting a nice U patient is given about 3 L of fluid. Oriented is also given bicarbonate. Patient's been on levo fed drip and dobutamine drip. Patient also was hypoglycemic. Patient has a bear hugger. Lethargic not really able to give much of her history but arousable. Seen by trust manager. Dr. Lopez. Admitted with-hypotensive shock from fluid depletion, severe hypothermia, UTI acute metabolic encephalopathy, hypoglycemia. Admitted to ICU. Started on IV ceftriaxone, IV dobutamine and IV levo fed. On IV hydrocortisone.-Cortisone level was okay. IV hydrocortisone discontinued. Computed tomography scan of the brain was questioning stroke. [id number] is remains delirious. Speaking out. Has a bear hugger. Telemetry shows be ventricular paced. On nasal cannula. Admitting review of system could not be done-patient delirious Active Medications Active Medications Enoxaparin Sodium (Lovenox) 30 mg SQ DAILY [facility] Last Admin: 07/03/19 09:31 Dose: 30 mg Documented by: Estradiol (Estrace) 0.25 mg PO Q48H [facility] Last Admin: 07/02/19 09:12 Dose: Not Given Documented by: Furosemide (Lasix) 20 mg IV DAILY [facility] Last Admin: 07/03/19 09:31 Dose: 20 mg Documented by: Ceftriaxone Sodium 2 gm/ (Sodium Chloride) 50 mls @ 100 mls/hr IVPB Q24HR [facility] Last Admin: 07/03/19 09:31 Dose: 100 mls/hr Documented by: Dextrose/Water (Dextrose 5%-Water Iv Soln) 1,000 mls @ 50 mls/hr IV .Q20H ONE Stop: 07/04/19 05:18 Last Admin: 07/03/19 09:32 Dose: 50 mls/hr Documented by: Insulin Aspart (Novolog) 0 unit SQ [id number] [facility]; Protocol Last Admin: 07/03/19 15:18 Dose: Not Given Documented by: Insulin Detemir (Levemir) 12 unit SQ HS [facility] Last Admin: 07/02/19 20:16 Dose: 12 unit Documented by: Naloxone HCl (Narcan) 0.2 mg IV Q2M PRN PRN Reason: Opioid Reversal Nystatin (Mycostatin Powder) 1 applic TOPICAL TID [facility] Last Admin: 07/03/19 15:18 Dose: 1 applic Documented by: Silver Sulfadiazine (Silvadene Cream) 1 applic TOPICAL DAILY [facility] Last Admin: 07/03/19 09:32 Dose: 1 applic Documented by: Timolol Maleate (Timoptic) 1 drops BOTH EYES DAILY [facility] Last Admin: 07/03/19 09:32 Dose: 1 drops Documented by: Physical examination: VITAL SIGNS: 97.6, 70, 13, 132/73, 96% GENERAL: laying in bed, speaking out words lethargic-delirious EYES: Pupils equal. Conjunctiva normal. HEENT: External appearance of nose and ears normal, oral cavity dry. NECK: JVD unable to assess; masses not palpable. HEART: First and second heart sounds are normal; janelle edema. LUNGS: Respiratory rate normal; decreased breath sounds. ABDOMEN: Soft, nontender, liver spleen not palpable, no masses palpable. PSYCH: Delirious does call out words at times. NEUROLOGICAL: Possible some weakness on the left arm and left leg. INVESTIGATIONS, reviewed in the clinical context: White count 9 hemoglobin 13.6 progression 3.4 sodium 148 bun 103 creatinine 2.61 Previous testing White count 5.2 hemoglobin 14.4 platelets 103 potassium 5.5 bun 81 creatinine 2.26 Glucose 61 TSH 4.0 UA positive for WBC leukoesterase EKG tracing personally reviewed by me-ventricle paced rhythm Chest x-ray film personally reviewed by me-portable, borderline cardiomegaly, lung victor clear Urine culture-negative; blood culture-negative EEG-evidence of cerebral dysfunction 2-D echo-EF 50-55%, moderate concentric LVH Computed tomography scan of the brain- questionable stroke, chronic changes Assessment: -Hypotensive shock, possibly fluid depletion, could be also septic shock -l -Possible lower extremity cellulitis -Severe hypo-thermia possibly from UTI and electrolyte abnormalities, POA- -Acute metabolic encephalopathy with delirium-improving -Subacute stroke possible in the right MCA territory with some subtle left-sided weakness -Diabetes mellitus type 2 chronically on insulin, uncontrolled with hypoglycemia-improved -Chronically on eliquis -Possibly acute UTI from cystitis with sepsis shock Plan: Patient's possibly volume contracted. Given hypernatremia and hyperchloremia. Also BUN is elevated in proportion to creatinine. D5W has been started. Discussed with Dr. Drew from nephrology. Concern is about be intravascularly depleted. We'll DC the IV Lasix.
[2019-07-03 17:21] LABS: Glucose,Whole Blood 133 mg/dL (75-99)
[2019-07-03 20:32] LABS: Glucose,Whole Blood 114 mg/dL (75-99)
[2019-07-03] MEDS: INSULIN DETEMIR (LEVEMIR) 100 UNIT/ML SYR SQ SCH (20:34)
--- NOTE | 2019-07-03 22:26 | PN ---
PROGRESS NOTE DATE OF SERVICE: 07/03/2019 REASON FOR FOLLOW UP: Lower extremity cellulitis. INTERVAL HISTORY: The patient is currently afebrile. The patient remains to be pleasantly confused though no agitation has been noted. She was unable to provide any history. No worsening respiratory status, vomiting, or any diarrhea reported. PHYSICAL EXAMINATION: Blood pressure 128/67 with a pulse of 70, temperature 97.7. She is 94% on 3 L nasal cannula. General description is an elderly female lying in bed in no distress. Respiratory system: Unlabored breathing, decreased breath sounds in the base, with no wheeze. HEART: S1, S2. Regular rate and rhythm. Abdomen soft, no tenderness. LABS: Hemoglobin of 13.1, white count of 9.0. BUN is 103, creatinine is 2.61. Blood culture has been negative. Urine is negative. DIAGNOSTIC IMPRESSION AND PLAN: Patient with bilateral lower extremity cellulitis. The patient is currently covered with Rocephin to continue while monitoring clinical course closely. MMODL / IJN: [id number] /
[2019-07-04 01:52] LABS: Glucose,Whole Blood 145 mg/dL (75-99)
[2019-07-04] MEDS: INSULIN ASPART (NovoLOG) 100 UNIT/ML VIAL SQ SCH ×5 (01:52→20:56)
[2019-07-04 05:09] LABS: Anisocytosis Slight; Basophils % (A) 0 %; Eosinophils # (A) 0.4 k/uL (0-0.7); Eosinophils % (A) 5 %; HCT 45.7 % (34.0-46.0); HGB 13.6 gm/dL (11.4-16.0); Hypochromasia Marked; Lymphocytes # (A) 0.5 k/uL (1.0-4.8); Lymphocytes % (A) 6 %; MCH 30.2 pg (25.0-35.0); MCHC 29.7 g/dL (31.0-37.0); MCV 101.7 fL (80.0-100.0); Macrocytosis Moderate; Mean Platelet Volume 11.1; Monocytes # (A) 0.4 k/uL (0-1.0); Monocytes % (A) 5 %; Neutrophils # (A) 6.9 k/uL (1.3-7.7); Neutrophils % (A) 84 %; RBC 4.49 m/uL (3.80-5.40); RDW 16.7 % (11.5-15.5); WBC 8.2 k/uL (3.8-10.6)
[2019-07-04 05:26] LABS: Calcium 9.2 mg/dL (8.4-10.2); Platelet Count 76 k/uL (150-450); Potassium 3.3 mmol/L (3.5-5.1)
[2019-07-04 06:32] LABS: Glucose,Whole Blood 141 mg/dL (75-99)
[2019-07-04] MEDS ORDERED: POTASSIUM CHLORIDE 20 MEQ in WATER FOR INJECTION 1 100ML.BAG IVPB ONE ×2 (07:00→09:00)
[2019-07-04] MEDS: ENOXAPARIN 30 MG/0.3 ML SYRINGE SQ SCH (08:49)
[2019-07-04] MEDS: NYSTATIN 100,000 UNIT/GM POWD 15 GM TOPICAL SCH ×3 (08:49→20:56)
[2019-07-04] MEDS: TIMOLOL 0.5% OPHTH DROPS 5 ML BTL BOTH EYES SCH (08:49)
--- NOTE | 2019-07-04 09:19 | P.PN ---
Subjective Progress Note Date: 07/04/19 Principal diagnosis: This is a 83-year-old female. With hypotension and acute kidney injury.the cause of the hypo-tension was not clear she is not septic with negative urine and blood culture, normal TSH and cortisol and normal troponin. A computed tomography scan showed findings consistent with chronic small vessel disease possible subacute ischemia, echocardiogram was unremarkable with 50-55% ejection fraction right ventricle is enlarged with dilatated of the left atrium, severe pulmonary hypertension Currently she is on nasal cannula oxygen groaning and moaning. Does not respond to any commands. Because of hyponatremia she was started on D5W as she is unable to take any oral liquids. Sodium remains 148 this morning. Her D5W is off Objective - Vital Signs Vital signs: Vital Signs Temp 97.4 F L 07/04/19 04:00 Pulse 70 07/04/19 07:00 Resp 23 07/04/19 07:00 BP 116/62 07/04/19 07:00 Pulse Ox 98 07/04/19 08:19 Intake & Output 07/03/19 07/04/19 07/04/19 18:59 06:59 18:59 Intake Total 646 583 53 Output Total 665 530 35 Balance -19 53 18 Weight 106.7 kg Intake: IV 646 583 53 0.9 60 Dextrose 5% in Water 1, 500 550 50 000 ml @ 50 mls/hr IV . Q20H ONE Rx#:[id number] cefTRIAXone 2 gm In 50 Sodium Chloride 0.9% 50 ml @ 100 mls/hr IVPB Q24HR [facility] Rx#:[id number] pressure bag 36 33 3 Output: Urine 665 530 35 Other: Voiding Method Indwelling Catheter Indwelling Catheter Indwelling Catheter On examination she is somnolent moaning and groaning. Does not respond to commands HEENT exam JVP is difficult to examine, no facial asymmetry. Lungs are clear to auscultation with diminished air entry Heart sounds are unremarkable Abdomen soft nontender Extremity exam was mild edema Neurologically as above - Labs CBC & Chem 7: 07/04/19 04:50 07/04/19 04:50 Labs: Abnormal Lab Results - Last 24 Hours (Table) 07/03/19 07/03/19 07/03/19 Range/Units 13:14 17:19 20:30 MCV (80.0-100.0) fL MCHC (31.0-37.0) g/dL RDW (11.5-15.5) % Plt Count (150-450) k/uL Lymphocytes # (1.0-4.8) k/uL Sodium (137-145) mmol/L Potassium (3.5-5.1) mmol/L Chloride (98-107) mmol/L Carbon Dioxide (22-30) mmol/L BUN (7-17) mg/dL Creatinine (0.52-1.04) mg/dL Glucose (74-99) mg/dL POC Glucose (mg/dL) 112 H 133 H 114 H (75-99) mg/dL 07/04/19 07/04/19 07/04/19 Range/Units 01:50 04:50 04:50 MCV 101.7 H (80.0-100.0) fL MCHC 29.7 L (31.0-37.0) g/dL RDW 16.7 H (11.5-15.5) % Plt Count 76 L (150-450) k/uL Lymphocytes # 0.5 L (1.0-4.8) k/uL Sodium 148 H (137-145) mmol/L Potassium 3.3 L (3.5-5.1) mmol/L Chloride 112 H (98-107) mmol/L Carbon Dioxide 31 H (22-30) mmol/L BUN 100 H (7-17) mg/dL Creatinine 2.40 H (0.52-1.04) mg/dL Glucose 143 H (74-99) mg/dL POC Glucose (mg/dL) 145 H (75-99) mg/dL 07/04/19 Range/Units 06:30 MCV (80.0-100.0) fL MCHC (31.0-37.0) g/dL RDW (11.5-15.5) % Plt Count (150-450) k/uL Lymphocytes # (1.0-4.8) k/uL Sodium (137-145) mmol/L Potassium (3.5-5.1) mmol/L Chloride (98-107) mmol/L Carbon Dioxide (22-30) mmol/L BUN (7-17) mg/dL Creatinine (0.52-1.04) mg/dL Glucose (74-99) mg/dL POC Glucose (mg/dL) 141 H (75-99) mg/dL Microbiology - Last 24 Hours (Table) 06/29/19 04:00 Blood Culture - Preliminary Blood No Growth after 120 hours Assessment and Plan Assessment: Impression 1. Acute kidney injury secondary to hypotension and ATN stable renal function. Creatinine stable at 2.7 for the last 3 days, slightly better at 2.4 this morning. Her vancomycin has been discontinued. 1+ level was slightly high at 22 2. Chronic kidney disease, stage III Baseline creatinine supposedly 1.6. 3. Admitted with hypotension was not very clear. Has been negative so far. Blood pressures improved 4. Severe Pulmonary hypertension by echocardiogram but good ejection fraction 5. Congestive heart failure. 6. Questionable paced rhythm. 7. Hypernatremia secondary to acute kidney injury, additionally is adequate oral intake. 8. Mild hypokalemia secondary to decreased intake and previous use of diuretics Recommendations; 1. Resume D5W at 75 mL an hour to improve the hyponatremia 2. Possibility of comfort measures being considered 3. Replace potassium 40 mEq. 4 . Redo labs tomorrow
[2019-07-04] MEDS: ESTRADIOL 0.5 MG TAB PO SCH (09:40)
--- NOTE | 2019-07-04 11:33 | PN ---
PROGRESS NOTE PULMONARY/CRITICAL CARE PROGRESS NOTE: DATE OF SERVICE: 07/04/2019 Critical care time greater than 30 minutes. This is an 83-year-old female who was admitted back on June 28. She came in with mental status changes, as well as hypotension and hypothermia. We suspected sepsis. Culture data thus far has been negative. The patient remains in the ICU. Her CT scan suggested chronic small-vessel disease. The radiologist suggested that there may be subacute ischemia. Dopplers revealed less than 50% stenosis bilaterally of the carotids. The EEG showed diffuse slowing consistent with toxic/metabolic encephalopathy. Overall, the patient's mental status continues to be poor. She is poorly responsive. She is just mumbling certain words that do not really make much sense. We did have some conversations with the family members. Apparently the family members would prefer not to proceed with anything like a PEG tube as the patient has had no nutrition for a number of days. She remains on empiric antibiotics. She also is on O2 of 4 L. She is not getting any additional IV fluids. She was on norepinephrine, but that has been weaned off. In addition, her hypothermia has resolved. PHYSICAL EXAMINATION: Current vital signs are reviewed. Temperature is 96.7, heart rate 70, respiratory rate 17, blood pressure 140/68, mean 92, CVP is apparently 15. Saturations are 94% on 4 L. Appears in no acute distress. HEENT: Examination is grossly unremarkable. Nasal O2 noted. NECK: Supple full range of motion. No adenopathy. Neck veins are flat. CARDIOVASCULAR: Examination reveals regular rhythm rate. Heart rate 70 beats per minute. S1, S2 normal. Heart sounds are distant. LUNGS: Reveal diffuse coarse rhonchi. Breath sounds equal. No crackles. ABDOMEN: Obese. Bowel sounds are not heard. EXTREMITIES are intact. Minimal edema. SKIN: Without rash. NEUROLOGIC: Examination is not really changed. She does not answer to verbal stimuli. The patient does respond to painful stimuli. She does mumble words, but most of the time the words are not able to be understood. Again, this mental status has not really changed. LABS: Reviewed. White count 8.2, hemoglobin 13.6, hematocrit 45.7, platelet count 76,000, sodium 148, potassium 3.3, chloride 112 CO2 31, anion gap is 5. BUN and creatinine were 100 and 2.4. Microbiology including blood and urine sampling has been negative. No recent chest x-ray to report. Medications are reviewed. The patient is currently on Rocephin, D5W at 75 mL an hour, Lovenox, Estrace, insulin Narcan, nystatin, potassium replacement, silver sulfadiazine cream, and eye drops. ASSESSMENT: 1. Altered mental status, of unclear etiology. This may relate to underlying toxic/metabolic encephalopathy. 2. CT scan shows nothing acute. Unfortunately, there has been no improvement in her mental status. 3. Initial presentation with mental status changes, hypothermia and hypotension, with both hypothermia and hypotension, much improved. 4. Possible sepsis, although culture data is negative. The patient remains on empiric antibiotic. 5. Acute kidney injury secondary to acute tubular necrosis. 6. Thrombocytopenia. 7. Diabetes mellitus. 8. Obesity. 9. Vitamin D deficiency. 10.History of environmental allergies. 11.Mild hypernatremia. PLAN: The patient is a DNR. Apparently the family does not want a PEG tube placed at this time. D5W has been increased to 75 mL an hours to correct for developing hypernatremia. Unfortunately, her mental status has not changed that much. We will continue to follow. Prognosis is poor. We will continue to have ongoing discussions with the family. Continue antibiotics. Critical care time greater than 30 minutes. MMODL / IJN: [id number] /
[2019-07-04] MEDS: DEXTROSE 5% IN WATER 1,000 ML IV SCH ×2 (13:24→23:02)
[2019-07-04 16:59] LABS: Glucose,Whole Blood 107 mg/dL (75-99)
--- NOTE | 2019-07-04 18:16 | P.PN ---
Progress Note - Text Progress Note Date: 07/04/19 Chief Complaint: Low blood pressure History of presenting complaint: This is a 83-year-old female patient of Dr. Ralph Jeffrey. Patient has a wound care nurse that comes on at home. For that the patient was not looking well. [facility] Blood pressure was the systolic 60s. Patient was hypothermic and also decreasing urine output. Particular distress Hospital and initially getting a nice U patient is given about 3 L of fluid. Oriented is also given bicarbonate. Patient's been on levo fed drip and dobutamine drip. Patient also was hypoglycemic. Patient has a bear hugger. Lethargic not really able to give much of her history but arousable. Seen by archivist political history. Dr. Lopez. Admitted with-hypotensive shock from fluid depletion, severe hypothermia, UTI acute metabolic encephalopathy, hypoglycemia. Admitted to ICU. Started on IV ceftriaxone, IV dobutamine and IV levo fed. On IV hydrocortisone.-Cortisone level was okay. IV hydrocortisone discontinued. Computed tomography scan of the brain was questioning stroke. Today-patient moved out of the ICU. Remains delirious. Speaking out words. Often mumbled. Not safe for oral intake. Admitting review of system could not be done-patient delirious Active Medications Enoxaparin Sodium (Lovenox) 30 mg SQ DAILY [facility] Last Admin: 07/04/19 08:49 Dose: 30 mg Documented by: Estradiol (Estrace) 0.25 mg PO Q48H [facility] Last Admin: 07/04/19 09:40 Dose: Not Given Documented by: Ceftriaxone Sodium 2 gm/ (Sodium Chloride) 50 mls @ 100 mls/hr IVPB Q24HR [facility] Last Admin: 07/04/19 08:48 Dose: 100 mls/hr Documented by: Dextrose/Water (Dextrose 5%-Water Iv Soln) 1,000 mls @ 75 mls/hr IV .[id number] [facility] Last Admin: 07/04/19 13:24 Dose: Not Given Documented by: Insulin Aspart (Novolog) 0 unit SQ [id number] [facility]; Protocol Last Admin: 07/04/19 16:20 Dose: Not Given Documented by: Insulin Detemir (Levemir) 12 unit SQ HS [facility] Last Admin: 07/03/19 20:34 Dose: 12 unit Documented by: Naloxone HCl (Narcan) 0.2 mg IV Q2M PRN PRN Reason: Opioid Reversal Nystatin (Mycostatin Powder) 1 applic TOPICAL TID [facility] Last Admin: 07/04/19 17:57 Dose: Not Given Documented by: Silver Sulfadiazine (Silvadene Cream) 1 applic TOPICAL DAILY [facility] Last Admin: 07/04/19 08:49 Dose: 1 applic Documented by: Timolol Maleate (Timoptic) 1 drops BOTH EYES DAILY [facility] Last Admin: 07/04/19 08:49 Dose: 1 drops Documented by: Physical examination: VITAL SIGNS: 97.3, 69, 18, 135/82, 92% on 5 L GENERAL: laying in bed, speaking out words lethargic-delirious EYES: Pupils equal. Conjunctiva normal. HEENT: External appearance of nose and ears normal, oral cavity dry. NECK: JVD unable to assess; masses not palpable. HEART: First and second heart sounds are normal; janelle edema. LUNGS: Respiratory rate normal; decreased breath sounds. ABDOMEN: Soft, nontender, liver spleen not palpable, no masses palpable. PSYCH: Delirious does call out words at times. NEUROLOGICAL: Moving all limbs today. INVESTIGATIONS, reviewed in the clinical context: White count 8.2 hemoglobin 13.6 platelets 76 progression 3.3 bun 100 creatine 2.40 Previous testing White count 5.2 hemoglobin 14.4 platelets 103 potassium 5.5 bun 81 creatinine 2.26 Glucose 61 TSH 4.0 UA positive for WBC leukoesterase EKG tracing personally reviewed by me-ventricle paced rhythm Chest x-ray film personally reviewed by me-portable, borderline cardiomegaly, bhavin ng victor clear Urine culture-negative; blood culture-negative EEG-evidence of cerebral dysfunction 2-D echo-EF 50-55%, moderate concentric LVH Computed tomography scan of the brain- questionable stroke, chronic changes Assessment: -Hypotensive shock, possibly fluid depletion, could be also septic shock -l -Possible lower extremity cellulitis -Severe hypo-thermia possibly from UTI and electrolyte abnormalities, POA- -Acute metabolic encephalopathy with delirium-improving -Subacute stroke possible in the right MCA territory with some subtle left-sided weakness -Diabetes mellitus type 2 chronically on insulin, uncontrolled with hypoglycemia-improved -Chronically on eliquis -Possibly acute UTI from cystitis with sepsis shock -Acute kidney injury possibly ATN from vancomycin toxicity and also prerenal component Plan: Continue with IV fluids at 75 mL an hour. Prognosis remains guarded. Repeat labs in the morning.
[2019-07-04 20:54] VITALS: BP 127/65; PULSE 78; RESP 18; TEMP 97.5
[2019-07-04 20:56] LABS: Glucose,Whole Blood 123 mg/dL (75-99)
[2019-07-04] MEDS: INSULIN DETEMIR (LEVEMIR) 100 UNIT/ML SYR SQ SCH (20:56)
[2019-07-05 02:38] LABS: Glucose,Whole Blood 142 mg/dL (75-99)
--- NOTE | 2019-07-05 02:54 | PN ---
PROGRESS NOTE DATE OF SERVICE: 07/04/2019 REASON FOR FOLLOWUP: Bilateral lower extremity cellulitis. INTERVAL HISTORY: The patient is currently afebrile. The patient is hemodynamically stable. She has been transferred out of the ICU. Breathing comfortably. No vomiting or any diarrhea reported by nursing staff. Patient herself was unable to provide any history. PHYSICAL EXAMINATION: On examination, her blood pressure is 127/65 with a pulse of 78, temperature 97.5. She is 90% on 4 L nasal cannula. General description is an elderly female lying in bed in no distress. RESPIRATORY SYSTEM: Unlabored breathing, decreased breath sounds in the bases. No wheeze. HEART: S1, S2. Regular rate and rhythm. ABDOMEN: Soft, no tenderness. Bilateral legs: Lower legs are currently wrapped up. There was no drainage on the dressing. LABS: Hemoglobin is 13.6, white count 8.2, BUN of 100, creatinine is 2.40. DIAGNOSTIC IMPRESSION AND PLAN: Patient admitted to the hospital with hypothermia, hypotension with concern for sepsis, possible lower extremity cellulitis, covered with Rocephin 2 grams daily to continue transition to oral antibiotic on discharge. Continue with supportive care. MMODL / IJN: [id number] /
[2019-07-05] MEDS ORDERED: SCOPOLAMINE 1.5MG/72HR PATCH TRANSDERM SCH (03:00)
[2019-07-05] MEDS ORDERED: ATROPINE OPHTH SOLN 1% 5ML BTL BOTH EYES SCH (09:00)
--- NOTE | 2019-07-05 20:29 | P.DS ---
Providers Date of admission: 06/29/19 03:11 Expected date of discharge: 07/05/19 Attending physician: Rodríguez Smith Consults: 06/29/19 03:11 Consult Physician Routine Consulting Provider: Courtney Ly Consult Reason/Comments: icu Do you want consulting provider notified?: Yes 06/29/19 03:46 Consult Physician Routine Consulting Provider: Anthony Ordonez Consult Reason/Comments: arf Do you want consulting provider notified?: Yes 07/01/19 14:33 Consult Physician Routine Consulting Provider: Malaika Nieves Consult Reason/Comments: Mental status changes Do you want consulting provider notified?: Yes 07/01/19 14:54 Consult Physician Routine Consulting Provider: Chanda Quinteros Consult Reason/Comments: sepsis Do you want consulting provider notified?: Yes Primary care physician: Ralph Horowitz [facility] Course: Chief Complaint: Low blood pressure History of presenting complaint: This is a 83-year-old female patient of Dr. Ralph Jeffrey. Patient has a wound care nurse that comes on at home. For that the patient was not looking well. Decided [facility]. Blood pressure was the systolic 60s. Patient was hypothermic and also decreasing urine output. Particular distress Hospital and initially getting a nice U patient is given about 3 L of fluid. Oriented is also given bicarbonate. Patient's been on levo fed drip and dobutamine drip. Patient also was hypoglycemic. Patient has a bear hugger. Lethargic not really able to give much of her history but arousable. Seen by film maker. Dr. Lopez. Admitted with-hypotensive shock from fluid depletion, severe hypothermia, UTI acute metabolic encephalopathy, hypoglycemia. Admitted to ICU. Started on IV ceftriaxone, IV dobutamine and IV levo fed. On IV hydrocortisone.-Cortisone level was okay. IV hydrocortisone discontinued. Computed tomography scan of the brain was questioning stroke. Today-overnight patient started to eat. Getting worse. Family was called in. A-team. Finally patient succumbed to the same. And Consultants: Dr. Ly current partners from pulmonary Dr. Ordonez in partners from nephrology Dr. Xie from neurology Dr. Quinteros from ID INVESTIGATIONS, reviewed in the clinical context: White count 8.2 hemoglobin 13.6 platelets 76 progression 3.3 bun 100 creatine 2.40 Previous testing White count 5.2 hemoglobin 14.4 platelets 103 potassium 5.5 bun 81 creatinine 2.26 Glucose 61 TSH 4.0 UA positive for WBC leukoesterase EKG tracing personally reviewed by me-ventricle paced rhythm Chest x-ray film personally reviewed by me-portable, borderline cardiomegaly, lung victor clear Urine culture-negative; blood culture-negative EEG-evidence of cerebral dysfunction 2-D echo-EF 50-55%, moderate concentric LVH Computed tomography scan of the brain- questionable stroke, chronic changes Assessment: -Hypotensive shock, possibly fluid depletion, could be also septic shock -l -Possible lower extremity cellulitis -Severe hypo-thermia possibly from UTI and electrolyte abnormalities, POA- -Acute metabolic encephalopathy with delirium-improving -Subacute stroke possible in the right MCA territory with some subtle left-sided weakness -Diabetes mellitus type 2 chronically on insulin, uncontrolled with hypoglycemia-improved -Chronically on eliquis -Possibly acute UTI from cystitis with sepsis shock -Acute kidney injury possibly ATN from vancomycin toxicity and also prerenal component Cause of : Diabetes mellitus type 2 Disposition: Patient Patient Condition at Discharge: Stable Plan - Discharge Summary Discharge Rx Participant: No New Discharge Prescriptions: No Action Fish Oil 900mg 900 mg PO DAILY Glucosamine 750mg 750 mg PO DAILY Apixaban [Eliquis] 5 mg PO BID Aspirin EC [Ecotrin Low Dose] 81 mg PO DAILY Cetirizine HCl 10 mg PO DAILY Cholecalciferol (Vitamin D3) [Vitamin D3] 2,000 unit PO DAILY Estradiol 0.25 mg PO Q48H Fluticasone Propionate [Flonase Allergy Relief] 1 spray EA NOSTRIL DAILY Furosemide [Lasix] 20 mg PO DAILY hydrOXYzine HCL 25 mg PO Q8H PRN PRN Reason: Anxiety Insulin Aspart Protam & Aspart [NovoLOG MIX 70-30 Flexpen] 44 units SQ HS Insulin Aspart Protam & Aspart [NovoLOG MIX 70-30 Flexpen] 40 units SQ QAM Levobunolol HCl [Betagan 0.5%] 1 drop BOTH EYES DAILY Metoprolol Succinate [Toprol XL] 25 mg PO DAILY Spironolactone 25 mg PO DAILY Discharge Medication List Apixaban [Eliquis] 5 mg PO BID 06/29/19 [History] Aspirin EC [Ecotrin Low Dose] 81 mg PO DAILY 06/29/19 [History] Cetirizine HCl 10 mg PO DAILY 06/29/19 [History] Cholecalciferol (Vitamin D3) [Vitamin D3] 2,000 unit PO DAILY 06/29/19 [History] Estradiol 0.25 mg PO Q48H 06/29/19 [History] Fish Oil 900mg 900 mg PO DAILY 06/29/19 [History] Fluticasone Propionate [Flonase Allergy Relief] 1 spray EA NOSTRIL DAILY 06/29/19 [History] Furosemide [Lasix] 20 mg PO DAILY 06/29/19 [History] Glucosamine 750mg 750 mg PO DAILY 06/29/19 [History] Insulin Aspart Protam & Aspart [NovoLOG MIX 70-30 Flexpen] 40 units SQ QAM 06/29/19 [History] Insulin Aspart Protam & Aspart [NovoLOG MIX 70-30 Flexpen] 44 units SQ HS 06/29/19 [History] Levobunolol HCl [Betagan 0.5%] 1 drop BOTH EYES DAILY 06/29/19 [History] Metoprolol Succinate [Toprol XL] 25 mg PO DAILY 06/29/19 [History] Spironolactone 25 mg PO DAILY 06/29/19 [History] hydrOXYzine HCL 25 mg PO Q8H PRN 06/29/19 [History] Discharge Disposition: - Preliminary Cause of Preliminary Cause of : Diabetes mellitus
--- NOTE | 2019-07-08 11:11 | CDI ---
Documentation Clarification Form Date: 07/08/2019 10:33:59 AM From: Mei Guidry RN, CCDS Email: [email or web address] Admit Date: 06/29/2019 03:11:00 AM Patient Name: Candace Garcia Visit Number: [id number] Discharge Date: 07/05/2019 04:40:00 AM ATTENTION: The Clinical Documentation Specialists (CDI) and [facility] Coding Staff appreciate your assistance in clarifying documentation. Please respond to the clarification below the line at the bottom and electronically sign. The CDI & [facility] Coding staff will review the response and follow-up if needed. Please note: Queries are made part of the Legal Health Record. If you have any questions, please contact the author of this message via ITS. Dr. Rodríguez Smith 06/28 ED note indicates the patient presented with shortness of breath, hypotension, hypothermia and altered mental status. History/Risk Factors: Discharge summary indicates 'admitted with-hypotensive shock from fluid depletion, severe hypothermia, UTI, acute metabolic encephalopathy, hypoglycemia. Admitted to ICU. Started on IV Ceftriaxone, IV Dobutamine and IV Levo fed. Computed tomography scan of the brain was questioning stroke'. Also determined to have history of CHF and Diabetes per 06/28 H&P. Clinical Indicators: Shortness of breath, obtunded per 06/30 and 07/02 PN's. 07/01 CXR showed basilar effusions, associated atelectasis vs pneumonia and edema. Vital signs: Temp ranged 92.5-98, HR ranged 70's, BP ranged 82/29-146/92, Respiratory rate ranged 7-36 during stay Pulse oximetry: continuous on 06/29. Pulse ox ranged from 88%-98% during stay Lung/Breathing assessment: 07/03 diminished air entry, diffuse coarse rhonchi 06/28 ABG: pH 7.33 pO2 121 pCO2 38 Treatment: O2 2-5L NC. Lasix 80 mg IV x1 06/28-07/02 In your professional opinion, can you please clarify if these findings signify one of the following conditions? Acute Respiratory Failure Other Diagnosis, please specify Unable to determine Specificity: If known, further specify (if known): With hypercapnia? (pCO2 >50 and pH <7.35) With hypoxia? (pO2 <60 mm Hg or SpO2 <91% on room air) Acute hypoxic respiratory failure. MTDD
== END 2019-07-05 04:40 | disposition expired | DRG 871 ==
LOC: EC 02:37 → SUPCPDRO 02:37 → 2SICU 03:11 → 4SSUR 07-04 13:06
PROVIDERS: ADMIT Hospitalist; ATTEND Hospitalist
DX: A41.9 Sepsis, unspecified organism (principal); R65.21 Severe sepsis with septic shock; G93.41 Metabolic encephalopathy; N17.0 Acute kidney failure with tubular necrosis; I63.9 Cerebral infarction, unspecified; I50.33 Acute on chronic diastolic (congestive) heart failure; J96.01 Acute respiratory failure with hypoxia; R40.2344 Coma scale, best motor response, flexion withdrawal, 24 hours or more after hospital admission; R40.2124 Coma scale, eyes open, to pain, 24 hours or more after hospital admission; N30.01 Acute cystitis with hematuria; Z68.41 Body mass index [BMI] 40.0-44.9, adult; E87.0 Hyperosmolality and hypernatremia; E87.1 Hypo-osmolality and hyponatremia; E87.2 Acidosis; I13.0 Hypertensive heart and chronic kidney disease with heart failure and stage 1 through stage 4 chronic kidney disease, or unspecified chronic kidney disease; J98.11 Atelectasis; L03.115 Cellulitis of right lower limb; L03.116 Cellulitis of left lower limb; I27.20 Pulmonary hypertension, unspecified; Z66 Do not resuscitate; Z79.4 Long term (current) use of insulin; E11.22 Type 2 diabetes mellitus with diabetic chronic kidney disease; E11.51 Type 2 diabetes mellitus with diabetic peripheral angiopathy without gangrene; E11.649 Type 2 diabetes mellitus with hypoglycemia without coma; R40.2244 Coma scale, best verbal response, confused conversation, 24 hours or more after hospital admission; Z20.828 Contact with and (suspected) exposure to other viral communicable diseases; D69.6 Thrombocytopenia, unspecified; D72.810 Lymphocytopenia; E55.9 Vitamin D deficiency, unspecified; E66.9 Obesity, unspecified; E86.9 Volume depletion, unspecified; E87.5 Hyperkalemia; E87.6 Hypokalemia; I05.2 Rheumatic mitral stenosis with insufficiency; N18.3 Chronic kidney disease, stage 3 (moderate); Z79.01 Long term (current) use of anticoagulants; Z79.82 Long term (current) use of aspirin; Z79.899 Other long term (current) drug therapy; Z95.0 Presence of cardiac pacemaker; T36.8X5A Adverse effect of other systemic antibiotics, initial encounter; Z60.2 Problems related to living alone; Z88.1 Allergy status to other antibiotic agents; Z88.8 Allergy status to other drugs, medicaments and biological substances
CPT/HCPCS: 36415; 36600; 70450; 71045; 80048; 80053; 80202; 81001; 82533; 82550; 82553; 82805; 83605; 83735; 84100; 84436; 84439; 84443; 84480; 84481; 84484; 85025; 85027; 87040; 87086; 93005; 93306; 93880; 95819; 96365; 96368; 96375; 99291